=== PATIENT | female | born 1935 | race Caucasian/White ===

== ENCOUNTER 2019-03-15 12:59 | Inpatient (IN) | payer OTHER ==
--- NOTE | 2019-03-15 14:05 | PDOC ---
History of Present Illness - General Chief Complaint: Seizure Stated Complaint: SEIZURE, Time Seen by Provider: 03/15/19 13:14 History Source: Patient Exam Limitations: No Limitations - History of Present Illness Initial Comments: 03/15/19 14:04 Maria E Chahal is an 83F with PMH dementia, hypothyroidism, anemia, recent hospitalization for PNA, and known seizure disorder without medication for the last 4 weeks sent from [facility] for 2x seizures. Patient has baseline dementia and is alert but communicates in short phrases but does not meaningfully communicate other than saying that she is cold or hungry when asked how she is feeling. Called [facility] and spoke to plant health manager Ariadne, who reports that patient arrived 7 days ago from [facility] where she was admitted for PND and IV Abx needing PICC, previously living with son Teo (#[phone]). Today had 2 seizures, first at 11:15AM lasting ~60 seconds with shaking and facial twitching, resolved , then second seizures at 11:40AM. Per daughter at bedside during seizures, patient has known hx of seizures on medications, but paperwork does not indicate any seizure medications on medicine list, assumed that patient has not gotten seizure meds in a month since prior to hospitalization. Nursing denies any other symptoms prior, has been tolerating soft diet and performing rehab well. Has PICC in R arm that has not been used for anything in [place] but was not removed prior to discharge, requested to Dr. Shah to remove. Past History - Past Medical History Allergies/Adverse Reactions: Allergies Allergy/AdvReac Type Severity Reaction Status Date / Time No Known Allergies Allergy Verified 03/15/19 15:17 Home Medications: Ambulatory Orders Aa/Hydrolyzed Collagen, Whey [Lps 15-30 Liquid] 30 ml PO DAILY 03/15/19 Acetaminophen [Tylenol] 650 mg PO QID PRN 03/15/19 Ascorbate Calcium [Vitamin C] 500 mg PO DAILY 03/15/19 Diltiazem Cd [Cardizem Cd -] 180 mg PO DAILY 03/15/19 Famotidine 20 mg PO DAILY 03/15/19 Ferrous Gluconate [Fergon -] 324 mg PO DAILY 03/15/19 Honey [Medihoney] 15 ml TP DAILY 03/15/19 Lamotrigine [Lamictal] 25 mg PO 03/15/19 Levothyroxine [Synthroid -] 75 mcg PO DAILY 03/15/19 Multivitamin [One-Daily Multi-Vitamin] 1 each PO DAILY 03/15/19 Nutritional Supplement [Hi-Asif] 120 ml PO BID 03/15/19 Pantoprazole Sodium [Protonix] 40 mg PO DAILY 03/15/19 Sodium,Potassium Phosphates [Phos-Nak Packet] 1 each PO DAILY 03/15/19 Zinc Oxide 20% Topical Oint 454 gm NR BID 03/15/19 Zinc Sulfate [Zinc-220] 220 mg PO DAILY 03/15/19 - Psycho Social/Smoking Cessation Hx Smoking History: Unknown if ever smoked Review of Systems - Review of Systems Able to Perform ROS?: No (dementia) *Physical Exam - Vital Signs Last Vital Signs Temp Pulse Resp BP Pulse Ox 98.3 F 84 16 126/57 L 03/15/19 13:38 03/15/19 13:38 03/15/19 13:38 03/15/19 13:38 - Physical Exam General Appearance: Yes: Nourished, Cachetic. No: Apparent Distress HEENT: positive: EOMI, KATHE, Normal Voice, Symmetrical. negative: Scleral Icterus (R), Scleral Icterus (L) Neck: positive: Trachea midline, Normal Thyroid. negative: Tender, Lymphadenopathy (R), Lymphadenopathy (L), Tender midline Respiratory/Chest: positive: Lungs Clear, Normal Breath Sounds. negative: Chest Tender, Respiratory Distress, Accessory Muscle Use, Crackles, Rhonchi, Stridor, Wheezing Cardiovascular: positive: Regular Rhythm, Regular Rate. negative: Murmur Gastrointestinal/Abdominal: positive: Normal Bowel Sounds, Flat, Soft. negative : Tender, Organomegaly, Pulsatile Mass, Guarding, Rebound Musculoskeletal: positive: Normal Inspection. negative: CVA Tenderness, Vertebral Tenderness Extremity: positive: Normal Capillary Refill, Normal Range of Motion, Pelvis Stable, Other (no bony deformities or tenderness). negative: Tender, Coldness Integumentary: positive: Normal Color, Dry, Warm, Erythema (L forearm, consistent with chemical dermatitis), Other (ulcer to R medial foot) Neurologic: positive: Alert, Confused, Disoriented ED Treatment Course - LABORATORY CBC & Chemistry Diagram: 03/15/19 15:33 03/15/19 15:33 Medical Decision Making - Medical Decision Making 03/15/19 14:33 Patient is an 83F with known history of seizure disorders and who has likely no gotten medication in the last month presenting with 2x seizures today. Patient's VS are stable and she is in no acute distress, communicates in brief phrases and not consistent with post-ictal state but evaluation limited 2/2 dementia. No evidence of significant injury, foot ulcer appears unconcerning at this time. NH report does not show evidence of any new medications given as cause of seizures. Appears to be at baseline mental status at this time. - CMP/CBC for evaluation of lytes and infection as seizure triggers - UA/UC for UTI eval - ECG for cardiac eval - CXR for PNA eval - CT head not indicated at this time as patient has known hx seizures, low threshold to get if status changes 03/15/19 14:38 CXR shows significant rotation with hyperdense region in RL zone consistent with atelectasis vs. infiltrate. Attempted to call son Teo without success, will re-attempt. ECG poor quality, NSR with PACs, HR 87, QRS 76, QTc 476, no TWI or ischemic changes. Patient's daughter at bedside says home meds are: - Lamictal 25mg QD - Risperidone 25mg QD - Diltiazem/HCTZ 180mg QD Had seizure in ED, repetitive face/mouth twitching without significant extremity movement. Given 1mg Ativan IV and 25mg Lamictal. Labs notable for: - CBC WNL - CMP WNL 03/15/19 19:33 CT shows moderately side R basilar pleural effusion. [facility], who has not yet received past records for this patient. Called [facility] ED for records, patient had left-sided chest tube that was removed before discharge. Last CXR on 03/07/19 shows no R-sided effusion and L-sided effusion resolved. R-sided effusion is new compared to prior studies, patient requires admission for further evaluation and management. Patient re-evaluated, remains stable VS, in no respiratory distress, satting well on RA 96-97%. Labs show no evidence of PNA. Requires admission for further evaluation of R-sided pleural effusion. Discussed case with jaleesa Seymour for admission to his service. 03/15/19 22:27 Patient's daughter would like private transfer to [facility]. Discussed case with Iveth Palomo at [facility], concern for lack of physician patient coverage at [facility] should patient have repeat seizure or worsening pleural effusion, transfer denied. Admission returning to Dr. Shah. Discharge - Discharge Information Problems reviewed: Yes Clinical Impression/Diagnosis: Pleural effusion Condition: Stable - Admission Yes - Follow up/Referral - Patient Discharge Instructions - Post Discharge Activity
[2019-03-15] MEDS ORDERED: lamoTRIgine 25 MG TABLET PO ONE (15:09)
[2019-03-15] MEDS ORDERED: LORazepam 2 MG/ML SDV VIAL ONE (15:21)
[2019-03-15] MEDS ORDERED: lamoTRIgine 25 MG TABLET ONE (15:22)
[2019-03-15 15:50] LABS: EOS % 0.7 % (0-4.5); HEMATOCRIT 30.5 % (32.4-45.2); HEMOGLOBIN 10.3 GM/dL (10.7-15.3); LYMPH % 7.2 % (8-40); MCHC 33.9 g/dl (32.0-36.0); MEAN CELL VOLUME 91.4 fl (80-96); MEAN PLT VOLUME 6.8 fl (7.5-11.1); MONO % 7.6 % (3.8-10.2); NEUT % 83.5 % (42.8-82.8); PLATELET COUNT 457 K/MM3 (134-434); RBC 3.33 M/mm3 (3.60-5.2); RDW 15.4 % (11.6-15.6); WHITE BLOOD COUNT 6.9 K/mm3 (4.0-10.0)
--- NOTE | 2019-03-15 16:05 | PDOC ---
Attending Attestation - Resident Resident Name: NavinfedericoDereje - ED Attending Attestation I have performed the following: I have examined & evaluated the patient, The case was reviewed & discussed with the resident, I agree w/resident's findings & plan, Exceptions are as noted - HPI HPI: 83 yo F history dementia, hypothyroid, anemia, recent admission for complicated pneumonia (requiring vent, trach, thoracentesis) presents with seizure. She has history of seizure disorder as per daughter, but has not been on her lamictal while in NH. Also of note, has a PICC to the R arm, not currently in use, but has not yet been removed. She has recently had a loose, hacking cough as per daughter, at bedside. - Physicial Exam PE: GENERAL: Awake, alert, and fully oriented, in no acute distress HEAD: No signs of trauma EYES: PERRLA, EOMI, sclera anicteric, conjunctiva clear ENT: Auricles normal inspection, hearing grossly normal, nares patent, oropharynx clear without exudates. Moist mucosa NECK: Normal ROM, supple, no lymphadenopathy, JVD, or masses LUNGS: Good air entry B/L, scattered rhonchi HEART: Regular rate and rhythm, normal S1 and S2, no murmurs, rubs or gallops ABDOMEN: Soft, nontender, normoactive bowel sounds. No guarding, no rebound. No masses EXTREMITIES: Normal range of motion, no edema. No clubbing or cyanosis. No cords , erythema, or tenderness. RUE with PICC line intact, no surrounding erythema NEUROLOGICAL: Cranial nerves II through XII grossly intact. Normal speech. Motor and sensation intact SKIN: Warm, dry, normal turgor, no rashes or lesions noted. - Medical Decision Making Pt was given lamictal after dosage was confirmed with daughter. She had a chest XR which showed haziness on the R side, CT was ordered and showed an effusion. While patient is not requiring O2, the effusion is concerning in the setting of prior thoracentesis- is this infectious? Malignant? or possibly CHF? Unclear. Will attempt to get old records from Dr. Shah. If they do not have them, will contact [place] to confirm if this is new or old. If it is new, especially in the history of recent serious infection, may require admission.
[2019-03-15 16:25] LABS: ALBUMIN 1.8 g/dl (3.4-5.0); BILIRUBIN,TOTAL 0.2 mg/dL (0.2-1); BLOOD UREA NITROGEN 15.4 mg/dL (7-18); CALCIUM 8.2 mg/dL (8.5-10.1); CREATININE 0.5 mg/dL (0.55-1.3); TOT PROT 5.7 g/dl (6.4-8.2)
[2019-03-15 16:26] LABS: POTASSIUM 4.2 mmol/L (3.5-5.1)
--- NOTE | 2019-03-15 19:35 | PDOC ---
*Physical Exam - Vital Signs Last Vital Signs Temp Pulse Resp BP Pulse Ox 98.3 F 84 16 126/57 L 03/15/19 13:38 03/15/19 13:38 03/15/19 13:38 03/15/19 13:38 ED Treatment Course - LABORATORY CBC & Chemistry Diagram: 03/16/19 08:05 03/16/19 08:05 - ADDITIONAL ORDERS Additional order review: Laboratory Results 03/15/19 15:33 Sodium 141 Potassium 4.2 Chloride 104 Carbon Dioxide 32 Anion Gap 5 L BUN 15.4 Creatinine 0.5 L Est GFR (CKD-EPI)AfAm 103.01 Est GFR (CKD-EPI)NonAf 88.88 Random Glucose 80 Calcium 8.2 L Total Bilirubin 0.2 AST 26 ALT 18 Alkaline Phosphatase 133 H Total Protein 5.7 L Albumin 1.8 L 03/15/19 15:33 RBC 3.33 L MCV 91.4 MCHC 33.9 RDW 15.4 MPV 6.8 L Neutrophils % 83.5 H Lymphocytes % 7.2 L Monocytes % 7.6 Eosinophils % 0.7 Basophils % 1.0 - Medications Given in the ED: ED Medications Discontinued Medications Generic Name Dose Route Start Last Admin Trade Name Freq PRN Reason Stop Dose Admin Lamotrigine 25 mg 03/15/19 15:09 03/15/19 15:34 Lamictal - PO 03/15/19 15:10 25 mg ONCE ONE Administration Lorazepam 1 mg 03/15/19 15:21 03/15/19 15:34 Ativan Injection - IVPUSH 03/15/19 15:22 1 mg ONCE ONE Administration Medical Decision Making - Medical Decision Making 03/15/19 19:34 I received pt on signout and she will be admitted for pleural effusion in the right lung which is new. She is awaiting signout to the hospitalists, and a bed. Pt has been loaded with her seizure meds. (LAMICTAL; which she has not had at the [place] or during her recent hospitalization at [facility]) She will be loaded with 1g keppra as well as a bridge. Discharge - Discharge Information Problems reviewed: Yes Clinical Impression/Diagnosis: Pleural effusion Condition: Stable - Follow up/Referral - Patient Discharge Instructions - Post Discharge Activity
[2019-03-15] MEDS ORDERED: levETIRAcetam 500 MG/5 ML INJECTION VIAL IVPB ONE (19:36)
[2019-03-15 23:42] LABS: N-TERMINAL BNP 1442.6 pg/ml (5-450)
[2019-03-16 01:08] LABS: EPI CELLS 0.2 /HPF (0-5/HPF); HYALINE CASTS 0 /lpf (0-8); PH,URINE 7.5 (5.0-8.0); URINE APPEARANCE CLOUDY; URINE BACTERIA 27.3 /hpf (NEGATIVE); URINE BILIRUBIN NEGATIVE (NEGATIVE); URINE COLOR YELLOW; URINE GLUCOSE (UA) NEGATIVE (NEGATIVE); URINE KETONE NEGATIVE (NEGATIVE); URINE LEUK ESTERASE 3+ (NEGATIVE); URINE NITRITE POSITIVE (NEGATIVE); URINE PROTEIN 1+ (NEGATIVE); URINE RBC 47 /hpf (0-4); URINE UROBILINOGEN 0.2 mg/dL (0.2-1.0); URINE WBC 239 /hpf (0-5)
[2019-03-16] MEDS ORDERED: CEFTRIAXONE 1 GM/50 ML BAG ONE (01:15)
[2019-03-16] MEDS ORDERED: CEFTRIAXONE 1 GM in DEXTROSE 5%-WATER - 100 ML IVPB ONE (01:15)
[2019-03-16] MEDS: LEVOTHYROXINE NA 75 MCG TABLET (FP) PO SCH (06:51)
[2019-03-16 10:06] LABS: BLOOD UREA NITROGEN 15.9 mg/dL (7-18); CALCIUM 7.7 mg/dL (8.5-10.1); CREATININE 0.4 mg/dL (0.55-1.3); POTASSIUM 3.5 mmol/L (3.5-5.1)
[2019-03-16 10:07] LABS: HEMOGLOBIN 9.6 GM/dL (10.7-15.3); MCHC 34.2 g/dl (32.0-36.0); MEAN CELL VOLUME 90.7 fl (80-96); MEAN PLT VOLUME 7.6 fl (7.5-11.1); PLATELET COUNT 411 K/MM3 (134-434); RBC 3.08 M/mm3 (3.60-5.2); RDW 15.6 % (11.6-15.6); WHITE BLOOD COUNT 5.6 K/mm3 (4.0-10.0)
[2019-03-16] MEDS: NAPH,MB-DB/K PH,MBDB POWDER PACKET PO SCH (11:04)
[2019-03-16] MEDS: PANTOPRAZOLE 40 MG TABLET PO SCH (11:04)
[2019-03-16] MEDS: FERROUS GLUCONATE 324 MG TAB (FP) PO SCH (11:04)
--- NOTE | 2019-03-16 11:31 | CONSULT ---
Consult - text type - Consultation Consultation Note: Neurology Chief Complaint: Seizure - History of Present Illness Maria E Chahal is an 83F with PMH dementia, hypothyroidism, anemia, recent hospitalization for PNA, and known seizure disorder without medication for the last 4 weeks sent from [facility] for 2x seizures. Patient has baseline dementia and is alert but communicates in short phrases but does not meaningfully communicate other than saying that she is cold or hungry when asked how she is feeling.Called [facility] and spoke to manager meat Ariadne, who reported that patient arrived 7 days prior of day of admission from [facility] where she was admitted for PND and IV Abx needing PICC, previously living with son Teo (#[phone]). On day of admission had 2 seizures, first at 11:15AM lasting ~60 seconds with shaking and facial twitching, resolved, then second seizures at 11:40AM. Per daughter at bedside during seizures, patient has known hx of seizures on medications, but paperwork does not indicate any seizure medications on medicine list, assumed that patient has not gotten seizure meds in a month since prior to hospitalization. Nursing denied any other symptoms prior, has been tolerating soft diet and performing rehab well. Daughter did not know when prior seizure was. Reportedly on Lamictal 25mg which is a low dose of the medication. Can restart this dose and if recurrence then would increase to 50mg. For now 25mg can be started. Past History Dementia, hypothyroidism, anemia, recent hospitalization for PNA, seizure disorder - Family History HTN -Psycho Social/Smoking Cessation Hx Smoking History: Unknown if ever smoked Review of Systems - Review of Systems Able to Perform ROS?: No (dementia) Allergies/Adverse Reactions: Allergies Allergy/AdvReac Type Severity Reaction Status Date / Time No Known Allergies Allergy Verified 03/15/19 15:17 Home Medications: Ambulatory Orders Aa/Hydrolyzed Collagen, Whey [Lps 15-30 Liquid] 30 ml PO DAILY 03/15/19 Acetaminophen [Tylenol] 650 mg PO QID PRN 03/15/19 Ascorbate Calcium [Vitamin C] 500 mg PO DAILY 03/15/19 Diltiazem Cd [Cardizem Cd -] 180 mg PO DAILY 03/15/19 Famotidine 20 mg PO DAILY 03/15/19 Ferrous Gluconate [Fergon -] 324 mg PO DAILY 03/15/19 Honey [Medihoney] 15 ml TP DAILY 03/15/19 Lamotrigine [Lamictal] 25 mg PO 03/15/19 Levothyroxine [Synthroid -] 75 mcg PO DAILY 03/15/19 Multivitamin [One-Daily Multi-Vitamin] 1 each PO DAILY 03/15/19 Nutritional Supplement [Hi-Asif] 120 ml PO BID 03/15/19 Pantoprazole Sodium [Protonix] 40 mg PO DAILY 03/15/19 Sodium,Potassium Phosphates [Phos-Nak Packet] 1 each PO DAILY 03/15/19 Zinc Oxide 20% Topical Oint 454 gm NR BID 03/15/19 Zinc Sulfate [Zinc-220] 220 mg PO DAILY 03/15/19 Active Medications Acetaminophen (Tylenol -) 650 mg PO QID PRN PRN Reason: PAIN Diltiazem HCl (Cardizem Cd -) 180 mg PO DAILY [facility] Famotidine (Pepcid -) 20 mg PO DAILY [facility] Ferrous Gluconate (Fergon -) 324 mg PO DAILY [facility] Last Admin: 03/16/19 11:04 Dose: 324 mg Lamotrigine (Lamictal -) 25 mg PO DAILY [facility] Levothyroxine Sodium (Synthroid -) 75 mcg PO ACBK [facility] Last Admin: 03/16/19 06:51 Dose: 75 mcg Pantoprazole Sodium (Protonix -) 40 mg PO DAILY [facility] Last Admin: 03/16/19 11:04 Dose: 40 mg Pneumococcal 13-Valent Conj Vacc (Prevnar 13 Syringe -) 0.5 ml IM .ONCE ONE Stop: 03/16/19 12:01 Potassium Phos/Sodium Phos (Phos-Nak Packet -) 1 packet PO DAILY [facility] Last Admin: 03/16/19 11:04 Dose: 1 packet *Physical Exam - Vital Signs Vital Signs Period Temp Pulse Resp BP Sys/Moss Pulse Ox Last 24 Hr 96.7 F-98.8 F 69-100 16-20 126-153/57-82 94-98 General Appearance: Yes: Nourished, Cachetic. No: Apparent Distress HEENT: positive: EOMI, KATHE, Normal Voice, Symmetrical. negative: Scleral Icterus (R), Scleral Icterus (L) Neck: positive: Trachea midline, Normal Thyroid. negative: Tender, Lymphadenopathy (R), Lymphadenopathy (L), Tender midline Respiratory/Chest: positive: Lungs Clear, Normal Breath Sounds. negative: Chest Tender, Respiratory Distress, Accessory Muscle Use, Crackles, Rhonchi, Stridor, Wheezing Cardiovascular: positive: Regular Rhythm, Regular Rate. negative: Murmur Gastrointestinal/Abdominal: positive: Normal Bowel Sounds, Flat, Soft. negative : Tender, Organomegaly, Pulsatile Mass, Guarding, Rebound Musculoskeletal: positive: Normal Inspection. negative: CVA Tenderness, Vertebral Tenderness Extremity: positive: Normal Capillary Refill, Normal Range of Motion, Pelvis Stable, Other (no bony deformities or tenderness). negative: Tender, Coldness Integumentary: positive: Normal Color, Dry, Warm, Erythema (L forearm, consistent with chemical dermatitis), Other (ulcer to R medial foot) Neurologic: positive: Alert, Confused, Disoriented CBCD WBC 5.6 K/mm3 (4.0-10.0) 03/16/19 08:05 RBC 3.08 M/mm3 (3.60-5.2) L 03/16/19 08:05 Hgb 9.6 GM/dL (10.7-15.3) L 03/16/19 08:05 Hct 28.0 % (32.4-45.2) L 03/16/19 08:05 MCV 90.7 fl (80-96) 03/16/19 08:05 MCHC 34.2 g/dl (32.0-36.0) 03/16/19 08:05 RDW 15.6 % (11.6-15.6) 03/16/19 08:05 Plt Count 411 K/MM3 (134-434) 03/16/19 08:05 MPV 7.6 fl (7.5-11.1) D 03/16/19 08:05 CMP Sodium 141 mmol/L (136-145) 03/16/19 08:05 Potassium 3.5 mmol/L (3.5-5.1) 03/16/19 08:05 Chloride 106 mmol/L (98-107) 03/16/19 08:05 Carbon Dioxide 31 mmol/L (21-32) 03/16/19 08:05 Anion Gap 4 MMOL/L (8-16) L 03/16/19 08:05 BUN 15.9 mg/dL (7-18) 03/16/19 08:05 Creatinine 0.4 mg/dL (0.55-1.3) L 03/16/19 08:05 Random Glucose 72 mg/dL (74-106) L 03/16/19 08:05 Calcium 7.7 mg/dL (8.5-10.1) L 03/16/19 08:05 Total Bilirubin 0.2 mg/dL (0.2-1) 03/15/19 15:33 AST 26 U/L (15-37) 03/15/19 15:33 ALT 18 U/L (13-61) 03/15/19 15:33 Alkaline Phosphatase 133 U/L (45-117) H 03/15/19 15:33 Total Protein 5.7 g/dl (6.4-8.2) L 03/15/19 15:33 Albumin 1.8 g/dl (3.4-5.0) L 03/15/19 15:33 PLAN: Maria E Chahal is an 83F with PMH dementia, hypothyroidism, anemia, recent hospitalization for PNA, and known seizure disorder without medication for the last 4 weeks sent from [facility] for 2x seizures. Patient has baseline dementia and is alert but communicates in short phrases but does not meaningfully communicate other than saying that she is cold or hungry when asked how she is feeling.Called [facility] and spoke to manager meat Ariadne, who reported that patient arrived 7 days prior of day of admission from [facility] where she was admitted for PND and IV Abx needing PICC, previously living with son Teo (#[phone]). On day of admission had 2 seizures, first at 11:15AM lasting ~60 seconds with shaking and facial twitching, resolved, then second seizures at 11:40AM. Per daughter at bedside during seizures, patient has known hx of seizures on medications, but paperwork does not indicate any seizure medications on medicine list, assumed that patient has not gotten seizure meds in a month since prior to hospitalization. Nursing denied any other symptoms prior, has been tolerating soft diet and performing rehab well. Daughter did not know when prior seizure was. Reportedly on Lamictal 25mg which is a low dose of the medication. Can restart this dose and if recurrence then would increase to 50mg. For now 25mg can be started. EEG not available on weekend, can be considered for outpatient if patient able. Seizure free at this time. Would medically optimize, treat any underlying infection that can precipitate seizure, maintain adequate hydration, avoid sleep deprivation.
[2019-03-16] MEDS ORDERED: PNEUMOC 13-VAL CONJ-DIP CRM/PF 0.5 ML DISP.SYRIN IM ONE (12:00)
[2019-03-16] MEDS: lamoTRIgine 25 MG TABLET PO SCH (12:18)
--- NOTE | 2019-03-16 12:28 | HP ---
Admitting History and Physical - Primary Care Physician PCP: Pearl Shah S - Admission Chief Complaint: seizures History of Present Illness: Maria E Chahal is an 83F with PMH dementia, hypothyroidism, anemia, recent hospitalization for PNA, and known seizure disorder without medication for the last 4 weeks sent from [facility] for 2x seizures. Patient has baseline dementia and is alert but communicates in short phrases but does not meaningfully communicate. Per [facility], patient arrived recently in [facility] from [facility] where she was admitted for PNA, pancreatitis, per daughter ( at bedside) pt also had L pleural effusion and chest tube (removed) but the etiology of her pleural effuiosn are unclear. On day of admission in [place] pt had 2 seizures. Per daughter at bedside during seizures, patient has known hx of seizures on medication (held in [facility] b/o pancreatitis per daughter). Currently pt in bed NAD sleeping but arousable, advanced dementia can not give history. History Source: Family Member, Medical Record Limitations to Obtaining History: Dementia - Past Medical History GEROPSYCHOLOGIST: Yes: Dementia ...: No - Smoking History Smoking history: Unknown if ever smoked Have you smoked in the past 12 months: No - Alcohol/Substance Use Hx Alcohol Use: No History of Substance Use: reports: None - Social History Usual Living Arrangement: Yes: [facility] History of Recent Travel: No Home Medications - Allergies Allergies/Adverse Reactions: Allergies Allergy/AdvReac Type Severity Reaction Status Date / Time No Known Allergies Allergy Verified 03/15/19 15:17 - Home Medications Home Medications: Ambulatory Orders Aa/Hydrolyzed Collagen, Whey [Lps 15-30 Liquid] 30 ml PO DAILY 03/15/19 Acetaminophen [Tylenol] 650 mg PO QID PRN 03/15/19 Ascorbate Calcium [Vitamin C] 500 mg PO DAILY 03/15/19 Diltiazem Cd [Cardizem Cd -] 180 mg PO DAILY 03/15/19 Famotidine 20 mg PO DAILY 03/15/19 Ferrous Gluconate [Fergon -] 324 mg PO DAILY 03/15/19 Honey [Medihoney] 15 ml TP DAILY 03/15/19 Lamotrigine [Lamictal] 25 mg PO DAILY 03/15/19 Levothyroxine [Synthroid -] 75 mcg PO DAILY 03/15/19 Multivitamin [One-Daily Multi-Vitamin] 1 each PO DAILY 03/15/19 Nutritional Supplement [Hi-Asif] 120 ml PO BID 03/15/19 Pantoprazole Sodium [Protonix] 40 mg PO DAILY 03/15/19 Sodium,Potassium Phosphates [Phos-Nak Packet] 1 each PO DAILY 03/15/19 Zinc Oxide 20% Topical Oint 454 gm NR BID 03/15/19 Zinc Sulfate [Zinc-220] 220 mg PO DAILY 03/15/19 Family Medical History Family History: Unremarkable Review of Systems - Review of Systems Constitutional: denies: Fever, Lethargy HENT: denies: Epistaxis Cardiovascular: denies: Shortness of Breath Respiratory: denies: Cough, Hemoptysis Genitourinary: denies: Hematuria Musculoskeletal: denies: Joint Swelling Integumentary: denies: Eczema, Rash Neurological: reports: Seizure Hematology/Lymphatic: denies: Excessive Bleeding Psychiatric: denies: Altered Sleep Pattern Physical Examination Vital Signs: Vital Signs Temperature 97.7 F 03/16/19 10:00 Pulse Rate 69 03/16/19 10:00 Respiratory Rate 03/16/19 10:00 Blood Pressure 146/72 03/16/19 10:00 O2 Sat by Pulse Oximetry (%) 94 L 03/16/19 05:14 Constitutional: Yes: No Distress HENT: Yes: Atraumatic Neck: Yes: Supple Cardiovascular: Yes: Regular Rate and Rhythm Respiratory: Yes: Diminished Gastrointestinal: Yes: Soft. No: Tenderness Renal/: No: Hematuria Musculoskeletal: No: Joint Stiffness, Joint Swelling Extremities: No: Cold, Cool Edema: No Integumentary: No: Venous Stasis Changes Neurological: Yes: Alert Psychiatric: Yes: Alert. No: Agitated Labs: CBC, BMP 03/16/19 08:05 03/16/19 08:05 Imaging - Results Chest X-ray: Report Reviewed Cat Scan: Report Reviewed Other: Report Reviewed Assessment/Plan Maria E Chahal is an 83F with PMH dementia, hypothyroidism, anemia, recent hospitalization for PNA and pancreatitis, and known seizure disorder sent from [facility] for 2x seizures. admit; neurology eval pleural effusions: get old records from [facility]; cardiology and pulmonary eval anemia w/u advanced directives? d/w pt's daughter the above; close f/u aspiration PFX, thickened fluids, purree diet; d/w staff
[2019-03-16] MEDS ORDERED: ACETAMINOPHEN 325 MG TABLET (FP) PO PRN (12:34)
--- NOTE | 2019-03-16 13:09 | CON.CARD ---
Cardiology Consult (text) - Consultation Consultation Note: cc: seizure hpi: hx from charts, family, pt with dementia 83 f hx dementia, htn, hypothyroid, sent [place]. Recent admit at [facility] for [facility]. Sent to [place] and had seizure so sent to ER. Pt cannot provide hx. Found to have bl pleural effs. pmh: per hpi psh: unknown social: no tob fam: unkown ros: unable to obtain 2/2 dementia meds: Home Medications Medication Instructions Recorded Aa/Hydrolyzed Collagen, Whey [Lps 30 ml PO DAILY 03/15/19 15-30 Liquid] Acetaminophen [Tylenol] 650 mg PO QID PRN 03/15/19 Ascorbate Calcium [Vitamin C] 500 mg PO DAILY 03/15/19 Diltiazem Cd [Cardizem Cd -] 180 mg PO DAILY 03/15/19 Famotidine 20 mg PO DAILY 03/15/19 Ferrous Gluconate [Fergon -] 324 mg PO DAILY 03/15/19 Honey [Medihoney] 15 ml TP DAILY 03/15/19 Lamotrigine [Lamictal] 25 mg PO 03/15/19 Levothyroxine [Synthroid -] 75 mcg PO DAILY 03/15/19 Multivitamin [One-Daily 1 each PO DAILY 03/15/19 Multi-Vitamin] Nutritional Supplement [Hi-Asif] 120 ml PO BID 03/15/19 Pantoprazole Sodium [Protonix] 40 mg PO DAILY 03/15/19 Sodium,Potassium Phosphates 1 each PO DAILY 03/15/19 [Phos-Nak Packet] Zinc Oxide 20% Topical Oint 454 gm NR BID 03/15/19 Zinc Sulfate [Zinc-220] 220 mg PO DAILY 03/15/19 pe: Vital Signs Period Temp Pulse Resp BP Sys/Moss Pulse Ox Last 24 Hr 96.7 F-98.8 F 69-100 16-20 126-153/57-82 94-98 nad no jvd rrr s1s2 no mrg dec bs bases bl, poor eff awake, confused no jaundice diaphoresis pos dp pt no carotid bruits abd nt nd pos bs no le e/c/c Laboratory Last Values WBC 5.6 K/mm3 (4.0-10.0) 03/16/19 08:05 RBC 3.08 M/mm3 (3.60-5.2) L 03/16/19 08:05 Hgb 9.6 GM/dL (10.7-15.3) L 03/16/19 08:05 Hct 28.0 % (32.4-45.2) L 03/16/19 08:05 MCV 90.7 fl (80-96) 03/16/19 08:05 MCH 31.0 pg (25.7-33.7) 03/16/19 08:05 MCHC 34.2 g/dl (32.0-36.0) 03/16/19 08:05 RDW 15.6 % (11.6-15.6) 03/16/19 08:05 Plt Count 411 K/MM3 (134-434) 03/16/19 08:05 MPV 7.6 fl (7.5-11.1) D 03/16/19 08:05 Absolute Neuts (auto) 5.8 K/mm3 (1.5-8.0) 03/15/19 15:33 Neutrophils % 83.5 % (42.8-82.8) H 03/15/19 15:33 Lymphocytes % 7.2 % (8-40) L 03/15/19 15:33 Monocytes % 7.6 % (3.8-10.2) 03/15/19 15:33 Eosinophils % 0.7 % (0-4.5) 03/15/19 15:33 Basophils % 1.0 % (0-2.0) 03/15/19 15:33 Nucleated RBC % 0 % (0-0) 03/15/19 15:33 Sodium 141 mmol/L (136-145) 03/16/19 08:05 Potassium 3.5 mmol/L (3.5-5.1) 03/16/19 08:05 Chloride 106 mmol/L (98-107) 03/16/19 08:05 Carbon Dioxide 31 mmol/L (21-32) 03/16/19 08:05 Anion Gap 4 MMOL/L (8-16) L 03/16/19 08:05 BUN 15.9 mg/dL (7-18) 03/16/19 08:05 Creatinine 0.4 mg/dL (0.55-1.3) L 03/16/19 08:05 Est GFR (CKD-EPI)AfAm 110.85 03/16/19 08:05 Est GFR (CKD-EPI)NonAf 95.65 03/16/19 08:05 Random Glucose 72 mg/dL (74-106) L 03/16/19 08:05 Calcium 7.7 mg/dL (8.5-10.1) L 03/16/19 08:05 Total Bilirubin 0.2 mg/dL (0.2-1) 03/15/19 15:33 AST 26 U/L (15-37) 03/15/19 15:33 ALT 18 U/L (13-61) 03/15/19 15:33 Alkaline Phosphatase 133 U/L (45-117) H 03/15/19 15:33 B-Natriuretic Peptide 1442.6 pg/ml (5-450) H 03/15/19 15:33 Total Protein 5.7 g/dl (6.4-8.2) L 03/15/19 15:33 Albumin 1.8 g/dl (3.4-5.0) L 03/15/19 15:33 TSH 1.54 uIU/ml (0.358-3.74) 03/16/19 08:05 Free T4 1.14 ng/dl (0.76-1.46) 03/16/19 08:05 Urine Color Yellow 03/16/19 00:20 Urine Appearance Cloudy 03/16/19 00:20 Urine pH 7.5 (5.0-8.0) 03/16/19 00:20 Ur Specific [place] 1.013 (1.010-1.035) 03/16/19 00:20 Urine Protein 1+ (NEGATIVE) H 03/16/19 00:20 Urine Glucose (UA) Negative (NEGATIVE) 03/16/19 00:20 Urine Ketones Negative (NEGATIVE) 03/16/19 00:20 Urine Blood 2+ (NEGATIVE) H 03/16/19 00:20 Urine Nitrite Positive (NEGATIVE) H 03/16/19 00:20 Urine Bilirubin Negative (NEGATIVE) 03/16/19 00:20 Urine Urobilinogen 0.2 mg/dL (0.2-1.0) 03/16/19 00:20 Ur Leukocyte Esterase 3+ (NEGATIVE) H 03/16/19 00:20 Urine WBC (Auto) 239 /hpf (0-5) 03/16/19 00:20 Urine RBC (Auto) 47 /hpf (0-4) 03/16/19 00:20 Urine Casts (Auto) 0 /lpf (0-8) 03/16/19 00:20 U Epithel Cells (Auto) 0.2 /HPF (0-5/HPF) 03/16/19 00:20 Urine Bacteria (Auto) 27.3 /hpf (NEGATIVE) 03/16/19 00:20 ecg: sr, nl intervals, no ischemic changes chest ct: mod bl effs a/p: 83 f hx dementia, htn, hypothyroid, [place]. pleural effs, chf: -pt with mod bl pleural effs -recent admit for pna, possibly related to infection vs chf/vol overload -will start lasix 20 iv qd and monitor daily chem7. check echo htn: -cont dilt hypothyroid: -on synthroid, tsh wnl
--- NOTE | 2019-03-16 13:13 | EKG ---
Test Reason : Blood Pressure : / mmHG Vent. Rate : 087 BPM Atrial Rate : 087 BPM P-R Int : 160 ms QRS Dur : 076 ms QT Int : 396 ms P-R-T Axes : 082 -30 034 degrees QTc Int : 476 ms POOR DATA QUALITY, INTERPRETATION MAY BE ADVERSELY AFFECTED SINUS RHYTHM WITH PREMATURE ATRIAL COMPLEXES LEFT AXIS DEVIATION ANTEROSEPTAL INFARCT , AGE UNDETERMINED ABNORMAL ECG NO PREVIOUS ECGS AVAILABLE Confirmed by SMOOTH WRIGHT, ARLET ([id number]) on 03/16/2019 1:13:31 PM Referred By: Confirmed By:ARLET REBOLLAR MD
--- NOTE | 2019-03-16 14:52 | CON.PULM ---
Consult Consult Specialty:: PULMONARY Referred by:: Dr Shah Reason for Consultation:: pleural effusions - History of Present Illness Chief Complaint: seizures History of Present Illness: 83yo female with h/o seizure disorder, hypothyroidism, anemia, dementia, recent hospitalization at [facility] for pneumonia, pancreatitis admitted from residential for seizure activity. History obtained from daughter at bedside as pt unable to provide history. Per daughter, pt also had bilateral pleural effusions during her admission requiring chest tube placement. 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 No fevers, chills or sweats. Has a nonproductive cough. No history of asthma or COPD, pt is a remote smoker. - History Source History Provided By: Family Member, Medical Record Limitations to Obtaining History: Dementia - Past Medical History ...: No - Smoking History Smoking history: Unknown if ever smoked Have you smoked in the past 12 months: No Home Medications - Allergies Allergies/Adverse Reactions: Allergies Allergy/AdvReac Type Severity Reaction Status Date / Time No Known Allergies Allergy Verified 03/15/19 15:17 - Home Medications Home Medications: Ambulatory Orders Aa/Hydrolyzed Collagen, Whey [Lps 15-30 Liquid] 30 ml PO DAILY 03/15/19 Acetaminophen [Tylenol] 650 mg PO QID PRN 03/15/19 Ascorbate Calcium [Vitamin C] 500 mg PO DAILY 03/15/19 Diltiazem Cd [Cardizem Cd -] 180 mg PO DAILY 03/15/19 Famotidine 20 mg PO DAILY 03/15/19 Ferrous Gluconate [Fergon -] 324 mg PO DAILY 03/15/19 Honey [Medihoney] 15 ml TP DAILY 03/15/19 Lamotrigine [Lamictal] 25 mg PO DAILY 03/15/19 Levothyroxine [Synthroid -] 75 mcg PO DAILY 03/15/19 Multivitamin [One-Daily Multi-Vitamin] 1 each PO DAILY 03/15/19 Nutritional Supplement [Hi-Asif] 120 ml PO BID 03/15/19 Pantoprazole Sodium [Protonix] 40 mg PO DAILY 03/15/19 Sodium,Potassium Phosphates [Phos-Nak Packet] 1 each PO DAILY 03/15/19 Zinc Oxide 20% Topical Oint 454 gm NR BID 03/15/19 Zinc Sulfate [Zinc-220] 220 mg PO DAILY 03/15/19 Review of Systems Unable to obtain ROS, reason: pt nonverbal Physical Exam Vital Sings: Vital Signs Temperature 97.7 F 03/16/19 10:00 Pulse Rate 69 03/16/19 10:00 Respiratory Rate 03/16/19 10:00 Blood Pressure 146/72 03/16/19 10:00 O2 Sat by Pulse Oximetry (%) 96 03/16/19 09:00 Constitutional: Yes: Calm, Cachectic Eyes: Yes: Conjunctiva Clear, EOM Intact HENT: Yes: Atraumatic, Normocephalic Neck: Yes: Supple, Trachea Midline Cardiovascular: Yes: Regular Rate and Rhythm Respiratory: Yes: Diminished (decreased breath sounds at the bases) ...Clubbing: No Gastrointestinal: Yes: Normal Bowel Sounds, Soft. No: Tenderness Edema: No Neurological: Yes: Alert Labs: CBC, BMP 03/16/19 08:05 03/16/19 08:05 Imaging - Results Chest X-ray: Report Reviewed, Image Reviewed Cat Scan: Report Reviewed, Image Reviewed (bilateral effusions R>L with atelectasis) Problem List - Problems (1) Pleural effusion Code(s): J90 - PLEURAL EFFUSION, NOT ELSEWHERE CLASSIFIED Assessment/Plan Bilateral Pleural Effusions Suspect Acute on Chronic Diastolic Heart Failure Recent Pneumonia HTN Hypothyroidism Dementia - agree with lasix - monitor urine output, creatinine - echocardiogram - received antibiotics in the ER, can monitor off antibiotics for now - f/u cultures - O2 to keep SpO2 >90% - aspiration precautions - DVT prophylaxis Thank you for this consult Nickolas Calle MD
[2019-03-16] MEDS: FUROSEMIDE 40 MG/4 ML INJECTABLE VIAL IVPUSH SCH (15:07)
[2019-03-16] MEDS: FAMOTIDINE 20 MG TABLET PO SCH (16:40)
[2019-03-16] MEDS: HEPARIN NA (PORCINE) 5,000 UNITS/ML 1ML VIAL SQ SCH (22:01)
[2019-03-17] MEDS: LEVOTHYROXINE NA 75 MCG TABLET (FP) PO SCH (06:44)
[2019-03-17] MEDS ORDERED: PT OWN MED DRAWER 7, Y5N ONE ×2 (07:46→08:50)
[2019-03-17 09:00] LABS: BASO % 0.7 % (0-2.0); EOS % 0.3 % (0-4.5); HEMOGLOBIN 9.4 GM/dL (10.7-15.3); LYMPH % 13.4 % (8-40); MCH 30.5 pg (25.7-33.7); MCHC 33.8 g/dl (32.0-36.0); MEAN CELL VOLUME 90.4 fl (80-96); MEAN PLT VOLUME 6.9 fl (7.5-11.1); MONO % 7.9 % (3.8-10.2); NEUT % 77.7 % (42.8-82.8); PLATELET COUNT 455 K/MM3 (134-434); RBC 3.09 M/mm3 (3.60-5.2); RDW 15.5 % (11.6-15.6); WHITE BLOOD COUNT 5.8 K/mm3 (4.0-10.0)
[2019-03-17 09:02] LABS: RETICULOCYTES 1.01 % (0.5-1.5)
[2019-03-17] MEDS: FERROUS GLUCONATE 324 MG TAB (FP) PO SCH (09:34)
[2019-03-17] MEDS: HEPARIN NA (PORCINE) 5,000 UNITS/ML 1ML VIAL SQ SCH ×2 (09:34→22:17)
[2019-03-17] MEDS: lamoTRIgine 25 MG TABLET PO SCH (09:35)
[2019-03-17] MEDS: FUROSEMIDE 40 MG/4 ML INJECTABLE VIAL IVPUSH SCH (09:35)
[2019-03-17] MEDS: MULTIVITAMINS (DAILY MVI) TABLET (FP) PO SCH (09:35)
[2019-03-17] MEDS: NAPH,MB-DB/K PH,MBDB POWDER PACKET PO SCH (09:36)
[2019-03-17] MEDS: FAMOTIDINE 20 MG TABLET PO SCH (09:38)
[2019-03-17 09:53] LABS: ALBUMIN 1.6 g/dl (3.4-5.0); BILIRUBIN,TOTAL 0.1 mg/dL (0.2-1); CALCIUM 8.1 mg/dL (8.5-10.1); CREATININE 0.4 mg/dL (0.55-1.3); POTASSIUM 3.5 mmol/L (3.5-5.1); TOT PROT 5.2 g/dl (6.4-8.2)
--- NOTE | 2019-03-17 10:34 | PN ---
Progress Note (short form) - Note Progress Note: s: no cp sob palps dizzy Current Medications Generic Name Dose Route Start Last Admin Trade Name Freq PRN Reason Stop Dose Admin Acetaminophen 650 mg 03/16/19 12:34 Tylenol - PO Q6H PRN PAIN Diltiazem HCl 180 mg 03/16/19 10:00 03/17/19 09:34 Cardizem Cd - PO 180 mg DAILY SWAPNA Administration Famotidine 20 mg 03/16/19 16:00 03/17/19 09:38 Pepcid - PO 20 mg DAILY SWAPNA Administration Ferrous Gluconate 324 mg 03/16/19 10:00 03/17/19 09:34 Fergon - PO 324 mg DAILY SWAPNA Administration Furosemide 20 mg 03/16/19 13:15 03/17/19 09:35 Lasix Injection - IVPUSH 20 mg DAILY SWAPNA Administration Heparin Sodium (Porcine) 5,000 unit 03/16/19 22:00 03/17/19 09:34 Heparin - SQ 5,000 unit BID SWAPNA Administration Lamotrigine 25 mg 03/16/19 10:00 03/17/19 09:35 Lamictal - PO 25 mg DAILY SWAPNA Administration Levothyroxine Sodium 75 mcg 03/16/19 07:00 03/17/19 06:44 Synthroid - PO 75 mcg ACBK SWAPNA Administration Multivitamins/Minerals/Vitamin C 1 tab 03/17/19 10:00 03/17/19 09:35 Tab-A-Vit - PO 1 tab DAILY SWAPNA Administration Pantoprazole Sodium 40 mg 03/16/19 10:00 03/16/19 11:04 Protonix - PO 40 mg DAILY SWAPNA Administration Potassium Phos/Sodium Phos 1 packet 03/16/19 10:00 03/17/19 09:36 Phos-Nak Packet - PO 1 packet DAILY SWAPNA Administration Vital Signs Period Temp Pulse Resp BP Sys/Moss Pulse Ox Last 24 Hr 97.3 F-98.0 F 78-83 18-20 105-133/63-71 94 nad no jvd rrr s1s2 no mrg dec bs bases bl, poor eff awake, confused no jaundice diaphoresis pos dp pt no carotid bruits abd nt nd pos bs no le e/c/c CBC, BMP 03/17/19 07:45 03/17/19 07:45 ecg: sr, nl intervals, no ischemic changes chest ct: mod bl effs a/p: 83 f hx dementia, htn, hypothyroid, sent [place] for [place]. pleural effs, chf: -pt with mod bl pleural effs -recent admit for pna, possibly related to infection vs chf/vol overload -cont lasix 20 iv qd and monitor daily chem7. check echo htn: -cont dilt hypothyroid: -on synthroid, tsh wnl
--- NOTE | 2019-03-17 11:01 | PN ---
Progress Note (short form) - Note Progress Note: Neurology Chief Complaint: Seizure - History of Present Illness Maria E Chahal is an 83F with PMH dementia, hypothyroidism, anemia, recent hospitalization for PNA, and known seizure disorder without medication for the last 4 weeks sent from [facility] for 2x seizures. Patient has baseline dementia and is alert but communicates in short phrases but does not meaningfully communicate other than saying that she is cold or hungry when asked how she is feeling.Called [facility] and spoke to funeral location manager Ariadne, who reported that patient arrived 7 days prior of day of admission from [facility] where she was admitted for PND and IV Abx needing PICC, previously living with son Teo (#[phone]). On day of admission had 2 seizures, first at 11:15AM lasting ~60 seconds with shaking and facial twitching, resolved, then second seizures at 11:40AM. Per daughter at bedside during seizures, patient has known hx of seizures on medications, but paperwork does not indicate any seizure medications on medicine list, assumed that patient has not gotten seizure meds in a month since prior to hospitalization. Nursing denied any other symptoms prior, has been tolerating soft diet and performing rehab well. Daughter did not know when prior seizure was. Reportedly on Lamictal 25mg which is a low dose of the medication. Lamictal restarted at 25 mg and discussed with nurse who confirmed no abnormal motor activity in the past 24 hours. Can remain on this dose for now unless recurrent events occur at which point would consider increasing to 50 mg. Active Medications Acetaminophen (Tylenol -) 650 mg PO Q6H PRN PRN Reason: PAIN Diltiazem HCl (Cardizem Cd -) 180 mg PO DAILY [facility] Last Admin: 03/17/19 09:34 Dose: 180 mg Famotidine (Pepcid -) 20 mg PO DAILY [facility] Last Admin: 03/17/19 09:38 Dose: 20 mg Ferrous Gluconate (Fergon -) 324 mg PO DAILY [facility] Last Admin: 03/17/19 09:34 Dose: 324 mg Furosemide (Lasix Injection -) 20 mg IVPUSH DAILY [facility] Last Admin: 03/17/19 09:35 Dose: 20 mg Heparin Sodium (Porcine) (Heparin -) 5,000 unit SQ BID [facility] Last Admin: 03/17/19 09:34 Dose: 5,000 unit Lamotrigine (Lamictal -) 25 mg PO DAILY [facility] Last Admin: 03/17/19 09:35 Dose: 25 mg Levothyroxine Sodium (Synthroid -) 75 mcg PO ACBK [facility] Last Admin: 03/17/19 06:44 Dose: 75 mcg Multivitamins/Minerals/Vitamin C (Tab-A-Vit -) 1 tab PO DAILY [facility] Last Admin: 03/17/19 09:35 Dose: 1 tab Pantoprazole Sodium (Protonix -) 40 mg PO DAILY [facility] Last Admin: 03/16/19 11:04 Dose: 40 mg Potassium Phos/Sodium Phos (Phos-Nak Packet -) 1 packet PO DAILY [facility] Last Admin: 03/17/19 09:36 Dose: 1 packet *Physical Exam - Vital Signs Vital Signs Period Temp Pulse Resp BP Sys/Moss Pulse Ox Last 24 Hr 97.3 F-98.0 F 78-83 18-20 105-133/63-71 94 General Appearance: Yes: Nourished, Cachetic. No: Apparent Distress HEENT: positive: EOMI, KATHE, Normal Voice, Symmetrical. negative: Scleral Icterus (R), Scleral Icterus (L) Neck: positive: Trachea midline, Normal Thyroid. negative: Tender, Lymphadenopathy (R), Lymphadenopathy (L), Tender midline Respiratory/Chest: positive: Lungs Clear, Normal Breath Sounds. negative: Chest Tender, Respiratory Distress, Accessory Muscle Use, Crackles, Rhonchi, Stridor, Wheezing Cardiovascular: positive: Regular Rhythm, Regular Rate. negative: Murmur Gastrointestinal/Abdominal: positive: Normal Bowel Sounds, Flat, Soft. negative : Tender, Organomegaly, Pulsatile Mass, Guarding, Rebound Musculoskeletal: positive: Normal Inspection. negative: CVA Tenderness, Vertebral Tenderness Extremity: positive: Normal Capillary Refill, Normal Range of Motion, Pelvis Stable, Other (no bony deformities or tenderness). negative: Tender, Coldness Integumentary: positive: Normal Color, Dry, Warm, Erythema (L forearm, consistent with chemical dermatitis), Other (ulcer to R medial foot) Neurologic: positive: Alert, Confused, Disoriented CBCD WBC 5.8 K/mm3 (4.0-10.0) 03/17/19 07:45 RBC 3.09 M/mm3 (3.60-5.2) L 03/17/19 07:45 Hgb 9.4 GM/dL (10.7-15.3) L 03/17/19 07:45 Hct 28.0 % (32.4-45.2) L 03/17/19 07:45 MCV 90.4 fl (80-96) 03/17/19 07:45 MCHC 33.8 g/dl (32.0-36.0) 03/17/19 07:45 RDW 15.5 % (11.6-15.6) 03/17/19 07:45 Plt Count 455 K/MM3 (134-434) H 03/17/19 07:45 MPV 6.9 fl (7.5-11.1) L 03/17/19 07:45 CMP Sodium 142 mmol/L (136-145) 03/17/19 07:45 Potassium 3.5 mmol/L (3.5-5.1) 03/17/19 07:45 Chloride 106 mmol/L (98-107) 03/17/19 07:45 Carbon Dioxide 31 mmol/L (21-32) 03/17/19 07:45 Anion Gap 4 MMOL/L (8-16) L 03/17/19 07:45 BUN 13.0 mg/dL (7-18) 03/17/19 07:45 Creatinine 0.4 mg/dL (0.55-1.3) L 03/17/19 07:45 Random Glucose 76 mg/dL (74-106) 03/17/19 07:45 Calcium 8.1 mg/dL (8.5-10.1) L 03/17/19 07:45 Total Bilirubin 0.1 mg/dL (0.2-1) L 03/17/19 07:45 AST 18 U/L (15-37) 03/17/19 07:45 ALT 16 U/L (13-61) 03/17/19 07:45 Alkaline Phosphatase 119 U/L (45-117) H 03/17/19 07:45 Total Protein 5.2 g/dl (6.4-8.2) L 03/17/19 07:45 Albumin 1.6 g/dl (3.4-5.0) L 03/17/19 07:45 PLAN: Maria E Chahal is an 83F with PMH dementia, hypothyroidism, anemia, recent hospitalization for PNA, and known seizure disorder without medication for the last 4 weeks sent from [facility] for 2x seizures. Patient has baseline dementia and is alert but communicates in short phrases but does not meaningfully communicate other than saying that she is cold or hungry when asked how she is feeling.Called [facility] and spoke to funeral location manager Ariadne, who reported that patient arrived 7 days prior of day of admission from [facility] where she was admitted for PND and IV Abx needing PICC, previously living with son Teo (#[phone]). On day of admission had 2 seizures, first at 11:15AM lasting ~60 seconds with shaking and facial twitching, resolved, then second seizures at 11:40AM. Per daughter at bedside during seizures, patient has known hx of seizures on medications, but paperwork does not indicate any seizure medications on medicine list, assumed that patient has not gotten seizure meds in a month since prior to hospitalization. Nursing denied any other symptoms prior, has been tolerating soft diet and performing rehab well. Daughter did not know when prior seizure was. Lamictal restarted at 25 mg and discussed with nurse who confirmed no abnormal motor activity in the past 24 hours. Can remain on this dose for now unless recurrent events occur at which point would consider increasing to 50 mg. EEG not available on weekend, can be considered for outpatient if patient able. Seizure free at this time. Would medically optimize, treat any underlying infection that can precipitate seizure, maintain adequate hydration, avoid sleep deprivation.
[2019-03-17] MEDS: PANTOPRAZOLE 40 MG TABLET PO SCH (11:25)
--- NOTE | 2019-03-17 13:04 | PN ---
Progress Note, Physician History of Present Illness: Pt is awake, denises CP, SOB, abd pain, nausea. Pt's dg is at bedside. - Current Medication List Current Medications: Active Medications Acetaminophen (Tylenol -) 650 mg PO Q6H PRN PRN Reason: PAIN Diltiazem HCl (Cardizem Cd -) 180 mg PO DAILY [facility] Last Admin: 03/17/19 09:34 Dose: 180 mg Famotidine (Pepcid -) 20 mg PO DAILY [facility] Last Admin: 03/17/19 09:38 Dose: 20 mg Ferrous Gluconate (Fergon -) 324 mg PO DAILY [facility] Last Admin: 03/17/19 09:34 Dose: 324 mg Furosemide (Lasix Injection -) 20 mg IVPUSH DAILY [facility] Last Admin: 03/17/19 09:35 Dose: 20 mg Heparin Sodium (Porcine) (Heparin -) 5,000 unit SQ BID [facility] Last Admin: 03/17/19 09:34 Dose: 5,000 unit Lamotrigine (Lamictal -) 25 mg PO DAILY [facility] Last Admin: 03/17/19 09:35 Dose: 25 mg Levothyroxine Sodium (Synthroid -) 75 mcg PO ACBK [facility] Last Admin: 03/17/19 06:44 Dose: 75 mcg Multivitamins/Minerals/Vitamin C (Tab-A-Vit -) 1 tab PO DAILY [facility] Last Admin: 03/17/19 09:35 Dose: 1 tab Pantoprazole Sodium (Protonix -) 40 mg PO DAILY [facility] Last Admin: 03/17/19 11:25 Dose: Not Given Potassium Phos/Sodium Phos (Phos-Nak Packet -) 1 packet PO DAILY [facility] Last Admin: 03/17/19 09:36 Dose: 1 packet - Objective Vital Signs: Vital Signs Temperature 97.8 F 03/17/19 10:00 Pulse Rate 79 03/17/19 10:00 Respiratory Rate 18 03/17/19 10:00 Blood Pressure 108/59 L 03/17/19 10:00 O2 Sat by Pulse Oximetry (%) 94 L 03/17/19 09:00 Constitutional: Yes: No Distress, Calm Cardiovascular: Yes: Regular Rate and Rhythm, S1, S2 Respiratory: Yes: Regular, Other (decrased BS at left base; coarse BS). No: Wheezes Gastrointestinal: Yes: Normal Bowel Sounds, Soft. No: Tenderness Edema: No Neurological: Yes: Alert, Oriented (family) Labs: CBC, BMP 03/17/19 07:45 03/17/19 07:45 Problem List - Problems (1) Seizure Code(s): R56.9 - UNSPECIFIED CONVULSIONS (2) Pleural effusion Code(s): J90 - PLEURAL EFFUSION, NOT ELSEWHERE CLASSIFIED (3) Heart failure Code(s): I50.9 - HEART FAILURE, UNSPECIFIED (4) Hypertension Code(s): I10 - ESSENTIAL (PRIMARY) HYPERTENSION (5) Hypothyroid Code(s): E03.9 - HYPOTHYROIDISM, UNSPECIFIED (6) Dementia Code(s): F03.90 - UNSPECIFIED DEMENTIA WITHOUT BEHAVIORAL DISTURBANCE Assessment/Plan Pt on IV Lasix; to monitor renal function ECHO i spending Pulmonary, Cardio, Neuro consults are appreciated. AM labs. Pt's care was d/w pt's dg (at bedside), all questions were answered. Pt's care was d/w pt's nurse.
--- NOTE | 2019-03-17 13:26 | PN ---
Progress Note (short form) - Note Progress Note: PULMONARY More alert, awake today. No fevers recorded. Vital Signs Period Temp Pulse Resp BP Sys/Moss Pulse Ox Last 24 Hr 97.3 F-98.0 F 78-83 18-20 105-133/59-71 94-94 Gen: NAD at rest Heart: RRR Lung: decreased breath sounds at the bases Abd: soft, nontender Ext: no edema CBC, BMP 03/17/19 07:45 03/17/19 07:45 Active Medications Acetaminophen (Tylenol -) 650 mg PO Q6H PRN PRN Reason: PAIN Albuterol/Ipratropium (Duoneb -) 1 amp NEB RTID [facility] Diltiazem HCl (Cardizem Cd -) 180 mg PO DAILY [facility] Last Admin: 03/17/19 09:34 Dose: 180 mg Famotidine (Pepcid -) 20 mg PO DAILY [facility] Last Admin: 03/17/19 09:38 Dose: 20 mg Ferrous Gluconate (Fergon -) 324 mg PO DAILY [facility] Last Admin: 03/17/19 09:34 Dose: 324 mg Furosemide (Lasix Injection -) 20 mg IVPUSH DAILY [facility] Last Admin: 03/17/19 09:35 Dose: 20 mg Heparin Sodium (Porcine) (Heparin -) 5,000 unit SQ BID [facility] Last Admin: 03/17/19 09:34 Dose: 5,000 unit Lamotrigine (Lamictal -) 25 mg PO DAILY [facility] Last Admin: 03/17/19 09:35 Dose: 25 mg Levothyroxine Sodium (Synthroid -) 75 mcg PO ACBK [facility] Last Admin: 03/17/19 06:44 Dose: 75 mcg Multivitamins/Minerals/Vitamin C (Tab-A-Vit -) 1 tab PO DAILY [facility] Last Admin: 03/17/19 09:35 Dose: 1 tab Potassium Phos/Sodium Phos (Phos-Nak Packet -) 1 packet PO DAILY [facility] Last Admin: 03/17/19 09:36 Dose: 1 packet A/P Bilateral Pleural Effusions Suspect Acute on Chronic Diastolic Heart Failure Recent Pneumonia HTN Hypothyroidism Dementia - continue lasix - monitor urine output, creatinine - echocardiogram - received antibiotics in the ER, can monitor off antibiotics for now - f/u cultures - O2 to keep SpO2 >90% - aspiration precautions - DVT prophylaxis Problem List - Problems (1) Pleural effusion Code(s): J90 - PLEURAL EFFUSION, NOT ELSEWHERE CLASSIFIED
[2019-03-17] MEDS: ALBUTEROL SO4 2.5/IPRATROPIUM 0.5 INH SOL 3 ML VIAL.NEB. NEB SCH ×2 (13:45→22:15)
[2019-03-18] MEDS: LEVOTHYROXINE NA 75 MCG TABLET (FP) PO SCH (06:19)
[2019-03-18] MEDS: ALBUTEROL SO4 2.5/IPRATROPIUM 0.5 INH SOL 3 ML VIAL.NEB. NEB SCH ×3 (07:35→21:00)
[2019-03-18 09:02] LABS: HEMATOCRIT 27.9 % (32.4-45.2); HEMOGLOBIN 9.5 GM/dL (10.7-15.3); MCH 30.9 pg (25.7-33.7); MCHC 34.1 g/dl (32.0-36.0); MEAN CELL VOLUME 90.5 fl (80-96); MEAN PLT VOLUME 6.8 fl (7.5-11.1); PLATELET COUNT 462 K/MM3 (134-434); RBC 3.09 M/mm3 (3.60-5.2); RDW 15.5 % (11.6-15.6); WHITE BLOOD COUNT 9.3 K/mm3 (4.0-10.0)
--- NOTE | 2019-03-18 09:03 | PN ---
Progress Note, Physician Chief Complaint: in bed NAD afebrile VSS UCx Pseudomonae Aer de jesus S NKDA NL creat - Current Medication List Current Medications: Active Medications Acetaminophen (Tylenol -) 650 mg PO Q6H PRN PRN Reason: PAIN Albuterol/Ipratropium (Duoneb -) 1 amp NEB RTID [facility] Last Admin: 03/18/19 07:35 Dose: 1 amp Diltiazem HCl (Cardizem Cd -) 180 mg PO DAILY [facility] Last Admin: 03/17/19 09:34 Dose: 180 mg Famotidine (Pepcid -) 20 mg PO DAILY [facility] Last Admin: 03/17/19 09:38 Dose: 20 mg Ferrous Gluconate (Fergon -) 324 mg PO DAILY [facility] Last Admin: 03/17/19 09:34 Dose: 324 mg Furosemide (Lasix Injection -) 20 mg IVPUSH DAILY [facility] Last Admin: 03/17/19 09:35 Dose: 20 mg Heparin Sodium (Porcine) (Heparin -) 5,000 unit SQ BID [facility] Last Admin: 03/17/19 22:17 Dose: 5,000 unit Lamotrigine (Lamictal -) 25 mg PO DAILY [facility] Last Admin: 03/17/19 09:35 Dose: 25 mg Levothyroxine Sodium (Synthroid -) 75 mcg PO ACBK [facility] Last Admin: 03/18/19 06:19 Dose: 75 mcg Multivitamins/Minerals/Vitamin C (Tab-A-Vit -) 1 tab PO DAILY [facility] Last Admin: 03/17/19 09:35 Dose: 1 tab Potassium Phos/Sodium Phos (Phos-Nak Packet -) 1 packet PO DAILY [facility] Last Admin: 03/17/19 09:36 Dose: 1 packet - Objective Vital Signs: Vital Signs Temperature 99.4 F 03/18/19 06:00 Pulse Rate 94 H 03/18/19 06:00 Respiratory Rate 18 03/18/19 06:00 Blood Pressure 120/66 03/18/19 06:00 O2 Sat by Pulse Oximetry (%) 95 03/17/19 21:00 Constitutional: Yes: No Distress, Calm Eyes: Yes: Conjunctiva Clear HENT: Yes: Atraumatic Neck: Yes: Supple Cardiovascular: Yes: Regular Rate and Rhythm Respiratory: Yes: Diminished Gastrointestinal: Yes: Soft. No: Tenderness Genitourinary: No: Hematuria Musculoskeletal: No: Joint Stiffness, Joint Swelling Extremities: No: Cold, Cool Edema: No Integumentary: No: Rash Neurological: Yes: Alert, Other (sleeping, arousable) ...Motor Strength: WNL Psychiatric: Yes: Alert Labs: CBC, BMP 03/18/19 08:30 - ....Imaging Other: Report Reviewed Assessment/Plan Maria E Chahal is an 83F with PMH dementia, hypothyroidism, anemia, recent hospitalization for PNA and pancreatitis, and known seizure disorder sent from [facility] for 2x seizures. admit; neurology eval pleural effusions: cardiology and pulmonary eval; check echo anemia w/u advanced directives? UTI PSeudomonas Po levaquin 250 mg/d aspiration PFX, thickened fluids, purree diet; d/w staff
[2019-03-18] MEDS ORDERED: PT OWN MED DRAWER 7, Y5N ONE ×2 (09:17→19:32)
[2019-03-18 09:30] LABS: ALBUMIN 1.6 g/dl (3.4-5.0); BILIRUBIN,TOTAL 0.3 mg/dL (0.2-1); BLOOD UREA NITROGEN 11.4 mg/dL (7-18); CALCIUM 7.6 mg/dL (8.5-10.1); CREATININE 0.5 mg/dL (0.55-1.3); POTASSIUM 3.7 mmol/L (3.5-5.1); TOT PROT 5.4 g/dl (6.4-8.2)
[2019-03-18] MEDS: FAMOTIDINE 20 MG TABLET PO SCH (09:33)
[2019-03-18] MEDS: NAPH,MB-DB/K PH,MBDB POWDER PACKET PO SCH (09:33)
[2019-03-18] MEDS: MULTIVITAMINS (DAILY MVI) TABLET (FP) PO SCH (09:33)
[2019-03-18] MEDS: FUROSEMIDE 40 MG/4 ML INJECTABLE VIAL IVPUSH SCH (09:34)
[2019-03-18] MEDS: FERROUS GLUCONATE 324 MG TAB (FP) PO SCH (09:34)
[2019-03-18] MEDS: HEPARIN NA (PORCINE) 5,000 UNITS/ML 1ML VIAL SQ SCH ×2 (09:34→21:49)
[2019-03-18] MEDS: lamoTRIgine 25 MG TABLET PO SCH (09:35)
--- NOTE | 2019-03-18 10:05 | EKG ---
Test Reason : Blood Pressure : / mmHG Vent. Rate : 105 BPM Atrial Rate : 097 BPM P-R Int : 142 ms QRS Dur : 074 ms QT Int : 370 ms P-R-T Axes : 087 -06 097 degrees QTc Int : 489 ms SINUS RHYTHM WITH PREMATURE SUPRAVENTRICULAR COMPLEXES ANTEROSEPTAL INFARCT (CITED ON OR BEFORE 15-MAR-2019) ABNORMAL ECG WHEN COMPARED WITH ECG OF 15-MAR-2019 13:44, NO SIGNIFICANT CHANGE WAS FOUND Confirmed by TIFFANIE RAMOS MD ([id number]) on 03/18/2019 10:05:32 AM Referred By: Confirmed By:TIFFANIE RAMOS MD
--- NOTE | 2019-03-18 10:59 | PN ---
Progress Note (short form) - Note Progress Note: s: no cp sob palps dizzy Current Medications Generic Name Dose Route Start Last Admin Trade Name Freq PRN Reason Stop Dose Admin Acetaminophen 650 mg 03/16/19 12:34 Tylenol - PO Q6H PRN PAIN Albuterol/Ipratropium 1 amp 03/17/19 14:00 03/18/19 07:35 Duoneb - NEB 1 amp RTID [facility] Administration Diltiazem HCl 180 mg 03/16/19 10:00 03/18/19 09:35 Cardizem Cd - PO 180 mg DAILY [facility] Administration Famotidine 20 mg 03/16/19 16:00 03/18/19 09:33 Pepcid - PO 20 mg DAILY [facility] Administration Ferrous Gluconate 324 mg 03/16/19 10:00 03/18/19 09:34 Fergon - PO 324 mg DAILY [facility] Administration Furosemide 20 mg 03/16/19 13:15 03/18/19 09:34 Lasix Injection - IVPUSH 20 mg DAILY [facility] Administration Heparin Sodium (Porcine) 5,000 unit 03/16/19 22:00 03/18/19 09:34 Heparin - SQ 5,000 unit BID [facility] Administration Lamotrigine 25 mg 03/16/19 10:00 03/18/19 09:35 Lamictal - PO 25 mg DAILY [facility] Administration Levofloxacin 250 mg 03/18/19 11:00 Levaquin - PO DAILY [facility] Levothyroxine Sodium 75 mcg 03/16/19 07:00 03/18/19 06:19 Synthroid - PO 75 mcg ACBK [facility] Administration Multivitamins/Minerals/Vitamin C 1 tab 03/17/19 10:00 03/18/19 09:33 Tab-A-Vit - PO 1 tab DAILY [facility] Administration Potassium Phos/Sodium Phos 1 packet 03/16/19 10:00 03/18/19 09:33 Phos-Nak Packet - PO 1 packet DAILY [facility] Administration Vital Signs Period Temp Pulse Resp BP Sys/Moss Pulse Ox Last 24 Hr 97.6 F-99.4 F 74-94 18-18 116-125/56-66 95 nad no jvd rrr s1s2 no mrg dec bs bases bl, poor eff awake, confused no jaundice diaphoresis pos dp pt no carotid bruits abd nt nd pos bs no le e/c/c Laboratory Last Values WBC 9.3 K/mm3 (4.0-10.0) 03/18/19 08:30 RBC 3.09 M/mm3 (3.60-5.2) L 03/18/19 08:30 Hgb 9.5 GM/dL (10.7-15.3) L 03/18/19 08:30 Hct 27.9 % (32.4-45.2) L 03/18/19 08:30 MCV 90.5 fl (80-96) 03/18/19 08:30 MCH 30.9 pg (25.7-33.7) 03/18/19 08:30 MCHC 34.1 g/dl (32.0-36.0) 03/18/19 08:30 RDW 15.5 % (11.6-15.6) 03/18/19 08:30 Plt Count 462 K/MM3 (134-434) H 03/18/19 08:30 MPV 6.8 fl (7.5-11.1) L 03/18/19 08:30 Absolute Neuts (auto) 4.5 K/mm3 (1.5-8.0) 03/17/19 07:45 Neutrophils % 77.7 % (42.8-82.8) 03/17/19 07:45 Lymphocytes % 13.4 % (8-40) D 03/17/19 07:45 Monocytes % 7.9 % (3.8-10.2) 03/17/19 07:45 Eosinophils % 0.3 % (0-4.5) 03/17/19 07:45 Basophils % 0.7 % (0-2.0) 03/17/19 07:45 Nucleated RBC % 0 % (0-0) 03/17/19 07:45 ESR 74 mm/hr (0-30) H 03/17/19 07:45 Retic Count 1.01 % (0.5-1.5) 03/17/19 07:45 Sodium 141 mmol/L (136-145) 03/18/19 08:30 Potassium 3.7 mmol/L (3.5-5.1) 03/18/19 08:30 Chloride 104 mmol/L (98-107) 03/18/19 08:30 Carbon Dioxide 32 mmol/L (21-32) 03/18/19 08:30 Anion Gap 4 MMOL/L (8-16) L 03/18/19 08:30 BUN 11.4 mg/dL (7-18) 03/18/19 08:30 Creatinine 0.5 mg/dL (0.55-1.3) L 03/18/19 08:30 Est GFR (CKD-EPI)AfAm 103.01 03/18/19 08:30 Est GFR (CKD-EPI)NonAf 88.88 03/18/19 08:30 Random Glucose 79 mg/dL (74-106) 03/18/19 08:30 Calcium 7.6 mg/dL (8.5-10.1) L 03/18/19 08:30 Iron 25 ug/dL (50-175) L 03/17/19 07:45 Ferritin 406.4 ng/ml (8-388) H 03/17/19 07:45 Total Bilirubin 0.3 mg/dL (0.2-1) 03/18/19 08:30 AST 20 U/L (15-37) 03/18/19 08:30 ALT 18 U/L (13-61) 03/18/19 08:30 Alkaline Phosphatase 125 U/L (45-117) H 03/18/19 08:30 LD Total 183 U/L (84-246) 03/17/19 07:45 C-Reactive Protein 5.3 MG/DL (0.00-0.3) H 03/17/19 07:45 B-Natriuretic Peptide 1442.6 pg/ml (5-450) H 03/15/19 15:33 Total Protein 5.4 g/dl (6.4-8.2) L 03/18/19 08:30 Albumin 1.6 g/dl (3.4-5.0) L 03/18/19 08:30 Vitamin B12 785 pg/ml (193-986) 03/17/19 07:45 Serum Folate 5 ng/mL (3.1-17.5) 03/17/19 07:45 TSH 1.80 uIU/ml (0.358-3.74) 03/17/19 07:45 Free T4 1.14 ng/dl (0.76-1.46) 03/16/19 08:05 Urine Color Yellow 03/16/19 00:20 Urine Appearance Cloudy 03/16/19 00:20 Urine pH 7.5 (5.0-8.0) 03/16/19 00:20 Ur Specific Clio 1.013 (1.010-1.035) 03/16/19 00:20 Urine Protein 1+ (NEGATIVE) H 03/16/19 00:20 Urine Glucose (UA) Negative (NEGATIVE) 03/16/19 00:20 Urine Ketones Negative (NEGATIVE) 03/16/19 00:20 Urine Blood 2+ (NEGATIVE) H 03/16/19 00:20 Urine Nitrite Positive (NEGATIVE) H 03/16/19 00:20 Urine Bilirubin Negative (NEGATIVE) 03/16/19 00:20 Urine Urobilinogen 0.2 mg/dL (0.2-1.0) 03/16/19 00:20 Ur Leukocyte Esterase 3+ (NEGATIVE) H 03/16/19 00:20 Urine WBC (Auto) 239 /hpf (0-5) 03/16/19 00:20 Urine RBC (Auto) 47 /hpf (0-4) 03/16/19 00:20 Urine Casts (Auto) 0 /lpf (0-8) 03/16/19 00:20 U Epithel Cells (Auto) 0.2 /HPF (0-5/HPF) 03/16/19 00:20 Urine Bacteria (Auto) 27.3 /hpf (NEGATIVE) 03/16/19 00:20 ecg: sr, nl intervals, no ischemic changes chest ct: mod bl effs a/p: 83 f hx dementia, htn, hypothyroid, sent from [facility] for seizures. pleural effs, chf: -pt with mod bl pleural effs -recent admit for pna, possibly related to infection vs chf/vol overload -cont lasix 20 iv qd and monitor daily chem7. check echo. check cxr today to see if effs better. htn: -cont dilt hypothyroid: -on synthroid, tsh wnl
--- NOTE | 2019-03-18 11:13 | PN ---
Progress Note (short form) - Note Progress Note: Neurology Chief Complaint: Seizure - History of Present Illness Maria E Chahal is an 83F with PMH dementia, hypothyroidism, anemia, recent hospitalization for PNA, and known seizure disorder without medication for the last 4 weeks sent from [facility] for 2x seizures. Patient has baseline dementia and is alert but communicates in short phrases but does not meaningfully communicate other than saying that she is cold or hungry when asked how she is feeling.Called [facility] and spoke to retail pharmacy manager Ariadne, who reported that patient arrived 7 days prior of day of admission from [facility] where she was admitted for PND and IV Abx needing PICC, previously living with son Teo (#[phone]). On day of admission had 2 seizures, first at 11:15AM lasting ~60 seconds with shaking and facial twitching, resolved, then second seizures at 11:40AM. Per daughter at bedside during seizures, patient has known hx of seizures on medications, but paperwork does not indicate any seizure medications on medicine list, assumed that patient has not gotten seizure meds in a month since prior to hospitalization. Nursing denied any other symptoms prior, has been tolerating soft diet and performing rehab well. Daughter did not know when prior seizure was. Reportedly on Lamictal 25mg which is a low dose of the medication. cCan remain on this dose for now unless recurrent events occur at which point would consider increasing to 50 mg. Active Medications Acetaminophen (Tylenol -) 650 mg PO Q6H PRN PRN Reason: PAIN Albuterol/Ipratropium (Duoneb -) 1 amp NEB RTID [facility] Last Admin: 03/18/19 07:35 Dose: 1 amp Diltiazem HCl (Cardizem Cd -) 180 mg PO DAILY [facility] Last Admin: 03/18/19 09:35 Dose: 180 mg Famotidine (Pepcid -) 20 mg PO DAILY [facility] Last Admin: 03/18/19 09:33 Dose: 20 mg Ferrous Gluconate (Fergon -) 324 mg PO DAILY [facility] Last Admin: 03/18/19 09:34 Dose: 324 mg Furosemide (Lasix Injection -) 20 mg IVPUSH DAILY [facility] Last Admin: 03/18/19 09:34 Dose: 20 mg Heparin Sodium (Porcine) (Heparin -) 5,000 unit SQ BID [facility] Last Admin: 03/18/19 09:34 Dose: 5,000 unit Lamotrigine (Lamictal -) 25 mg PO DAILY [facility] Last Admin: 03/18/19 09:35 Dose: 25 mg Levofloxacin (Levaquin -) 250 mg PO DAILY [facility] Last Admin: 03/18/19 11:13 Dose: 250 mg Levothyroxine Sodium (Synthroid -) 75 mcg PO ACBK [facility] Last Admin: 03/18/19 06:19 Dose: 75 mcg Multivitamins/Minerals/Vitamin C (Tab-A-Vit -) 1 tab PO DAILY [facility] Last Admin: 03/18/19 09:33 Dose: 1 tab Potassium Phos/Sodium Phos (Phos-Nak Packet -) 1 packet PO DAILY [facility] Last Admin: 03/18/19 09:33 Dose: 1 packet *Physical Exam - Vital Signs Vital Signs Period Temp Pulse Resp BP Sys/Moss Pulse Ox Last 24 Hr 97.6 F-99.4 F 74-94 18-18 116-125/56-66 95 General Appearance: Yes: Nourished, Cachetic. No: Apparent Distress HEENT: positive: EOMI, KATHE, Normal Voice, Symmetrical. negative: Scleral Icterus (R), Scleral Icterus (L) Neck: positive: Trachea midline, Normal Thyroid. negative: Tender, Lymphadenopathy (R), Lymphadenopathy (L), Tender midline Respiratory/Chest: positive: Lungs Clear, Normal Breath Sounds. negative: Chest Tender, Respiratory Distress, Accessory Muscle Use, Crackles, Rhonchi, Stridor, Wheezing Cardiovascular: positive: Regular Rhythm, Regular Rate. negative: Murmur Gastrointestinal/Abdominal: positive: Normal Bowel Sounds, Flat, Soft. negative : Tender, Organomegaly, Pulsatile Mass, Guarding, Rebound Musculoskeletal: positive: Normal Inspection. negative: CVA Tenderness, Vertebral Tenderness Extremity: positive: Normal Capillary Refill, Normal Range of Motion, Pelvis Stable, Other (no bony deformities or tenderness). negative: Tender, Coldness Integumentary: positive: Normal Color, Dry, Warm, Erythema (L forearm, consistent with chemical dermatitis), Other (ulcer to R medial foot) Neurologic: positive: Alert, Confused, Disoriented CBCD WBC 9.3 K/mm3 (4.0-10.0) 03/18/19 08:30 RBC 3.09 M/mm3 (3.60-5.2) L 03/18/19 08:30 Hgb 9.5 GM/dL (10.7-15.3) L 03/18/19 08:30 Hct 27.9 % (32.4-45.2) L 03/18/19 08:30 MCV 90.5 fl (80-96) 03/18/19 08:30 MCHC 34.1 g/dl (32.0-36.0) 03/18/19 08:30 RDW 15.5 % (11.6-15.6) 03/18/19 08:30 Plt Count 462 K/MM3 (134-434) H 03/18/19 08:30 MPV 6.8 fl (7.5-11.1) L 03/18/19 08:30 CMP Sodium 141 mmol/L (136-145) 03/18/19 08:30 Potassium 3.7 mmol/L (3.5-5.1) 03/18/19 08:30 Chloride 104 mmol/L (98-107) 03/18/19 08:30 Carbon Dioxide 32 mmol/L (21-32) 03/18/19 08:30 Anion Gap 4 MMOL/L (8-16) L 03/18/19 08:30 BUN 11.4 mg/dL (7-18) 03/18/19 08:30 Creatinine 0.5 mg/dL (0.55-1.3) L 03/18/19 08:30 Random Glucose 79 mg/dL (74-106) 03/18/19 08:30 Calcium 7.6 mg/dL (8.5-10.1) L 03/18/19 08:30 Total Bilirubin 0.3 mg/dL (0.2-1) 03/18/19 08:30 AST 20 U/L (15-37) 03/18/19 08:30 ALT 18 U/L (13-61) 03/18/19 08:30 Alkaline Phosphatase 125 U/L (45-117) H 03/18/19 08:30 Total Protein 5.4 g/dl (6.4-8.2) L 03/18/19 08:30 Albumin 1.6 g/dl (3.4-5.0) L 03/18/19 08:30 PLAN: Maria E Chahal is an 83F with PMH dementia, hypothyroidism, anemia, recent hospitalization for PNA, and known seizure disorder without medication for the last 4 weeks sent from [facility] for 2x seizures. Patient has baseline dementia and is alert but communicates in short phrases but does not meaningfully communicate other than saying that she is cold or hungry when asked how she is feeling.Called [facility] and spoke to retail pharmacy manager Ariadne, who reported that patient arrived 7 days prior of day of admission from [facility] where she was admitted for PND and IV Abx needing PICC, previously living with son Teo (#[phone]). On day of admission had 2 seizures, first at 11:15AM lasting ~60 seconds with shaking and facial twitching, resolved, then second seizures at 11:40AM. Per daughter at bedside during seizures, patient has known hx of seizures on medications, but paperwork does not indicate any seizure medications on medicine list, assumed that patient has not gotten seizure meds in a month since prior to hospitalization. Nursing denied any other symptoms prior, has been tolerating soft diet and performing rehab well. Daughter did not know when prior seizure was. Lamictal restarted at 25 mg and can remain on this dose for now unless recurrent events occur at which point would consider increasing to 50 mg. Seizure free at this time. Would medically optimize, treat any underlying infection that can precipitate seizure , maintain adequate hydration, avoid sleep deprivation.
--- NOTE | 2019-03-18 11:45 | PN ---
Progress Note (short form) - Note Progress Note: Awake but confused. NAD. No acute events overnight. Intake & Output 03/15/19 03/16/19 03/17/19 03/18/19 23:59 23:59 23:59 23:59 Intake Total 200 400 Balance 200 400 Weight 78 lb 1.6 oz 75 lb 9.6 oz 93 lb 9.6 oz 72 lb 6 oz Last Vital Signs Temp Pulse Resp BP Pulse Ox 99.4 F 94 H 18 120/66 95 03/18/19 06:00 03/18/19 06:00 03/18/19 06:00 03/18/19 06:00 03/17/19 21:00 Active Medications Acetaminophen (Tylenol -) 650 mg PO Q6H PRN PRN Reason: PAIN Albuterol/Ipratropium (Duoneb -) 1 amp NEB RTID [facility] Last Admin: 03/18/19 07:35 Dose: 1 amp Diltiazem HCl (Cardizem Cd -) 180 mg PO DAILY [facility] Last Admin: 03/18/19 09:35 Dose: 180 mg Famotidine (Pepcid -) 20 mg PO DAILY [facility] Last Admin: 03/18/19 09:33 Dose: 20 mg Ferrous Gluconate (Fergon -) 324 mg PO DAILY [facility] Last Admin: 03/18/19 09:34 Dose: 324 mg Furosemide (Lasix Injection -) 20 mg IVPUSH DAILY [facility] Last Admin: 03/18/19 09:34 Dose: 20 mg Heparin Sodium (Porcine) (Heparin -) 5,000 unit SQ BID [facility] Last Admin: 03/18/19 09:34 Dose: 5,000 unit Lamotrigine (Lamictal -) 25 mg PO DAILY [facility] Last Admin: 03/18/19 09:35 Dose: 25 mg Levofloxacin (Levaquin -) 250 mg PO DAILY [facility] Last Admin: 03/18/19 11:13 Dose: 250 mg Levothyroxine Sodium (Synthroid -) 75 mcg PO ACBK [facility] Last Admin: 03/18/19 06:19 Dose: 75 mcg Multivitamins/Minerals/Vitamin C (Tab-A-Vit -) 1 tab PO DAILY [facility] Last Admin: 03/18/19 09:33 Dose: 1 tab Potassium Phos/Sodium Phos (Phos-Nak Packet -) 1 packet PO DAILY [facility] Last Admin: 03/18/19 09:33 Dose: 1 packet Gen: NAD at rest Heart: RRR Lung: decreased breath sounds at the bases Abd: soft, nontender Ext: no edema Laboratory Results - last 24 hr 03/17/19 03/18/19 03/18/19 07:45 08:30 08:30 WBC 9.3 RBC 3.09 L Hgb 9.5 L Hct 27.9 L MCV 90.5 MCH 30.9 MCHC 34.1 RDW 15.5 Plt Count 462 H MPV 6.8 L ESR 74 H Sodium 141 Potassium 3.7 Chloride 104 Carbon Dioxide 32 Anion Gap 4 L BUN 11.4 Creatinine 0.5 L Est GFR (CKD-EPI)AfAm 103.01 Est GFR (CKD-EPI)NonAf 88.88 Random Glucose 79 Calcium 7.6 L Total Bilirubin 0.3 AST 20 ALT 18 Alkaline Phosphatase 125 H Total Protein 5.4 L Albumin 1.6 L Problem List - Problems (1) Pleural effusion Code(s): J90 - PLEURAL EFFUSION, NOT ELSEWHERE CLASSIFIED A/P Bilateral Pleural Effusions Suspect Acute on Chronic Diastolic Heart Failure Recent Pneumonia HTN Hypothyroidism Dementia - Lasix - monitor urine output, creatinine - Low threshold to stop antibiotics - f/u cultures - O2 to keep SpO2 >90% - aspiration precautions - DVT prophylaxis Dr Vigil
[2019-03-18 14:38] VITALS: BMI 14.1
[2019-03-19] MEDS: LEVOTHYROXINE NA 75 MCG TABLET (FP) PO SCH (06:06)
--- NOTE | 2019-03-19 06:40 | PN ---
Progress Note, Physician Chief Complaint: sleeping in bed comfortable UCx + on po levaquin - Current Medication List Current Medications: Active Medications Acetaminophen (Tylenol -) 650 mg PO Q6H PRN PRN Reason: PAIN Albuterol/Ipratropium (Duoneb -) 1 amp NEB RTID [facility] Last Admin: 03/18/19 21:00 Dose: 1 amp Diltiazem HCl (Cardizem Cd -) 180 mg PO DAILY [facility] Last Admin: 03/18/19 09:35 Dose: 180 mg Famotidine (Pepcid -) 20 mg PO DAILY [facility] Last Admin: 03/18/19 09:33 Dose: 20 mg Ferrous Gluconate (Fergon -) 324 mg PO DAILY [facility] Last Admin: 03/18/19 09:34 Dose: 324 mg Furosemide (Lasix Injection -) 20 mg IVPUSH DAILY [facility] Last Admin: 03/18/19 09:34 Dose: 20 mg Heparin Sodium (Porcine) (Heparin -) 5,000 unit SQ BID [facility] Last Admin: 03/18/19 21:49 Dose: 5,000 unit Lamotrigine (Lamictal -) 25 mg PO DAILY [facility] Last Admin: 03/18/19 09:35 Dose: 25 mg Levofloxacin (Levaquin -) 250 mg PO DAILY [facility] Last Admin: 03/18/19 11:13 Dose: 250 mg Levothyroxine Sodium (Synthroid -) 75 mcg PO ACBK [facility] Last Admin: 03/19/19 06:06 Dose: 75 mcg Multivitamins/Minerals/Vitamin C (Tab-A-Vit -) 1 tab PO DAILY [facility] Last Admin: 03/18/19 09:33 Dose: 1 tab Potassium Phos/Sodium Phos (Phos-Nak Packet -) 1 packet PO DAILY [facility] Last Admin: 03/18/19 09:33 Dose: 1 packet - Objective Vital Signs: Vital Signs Temperature 97.8 F 03/18/19 18:00 Pulse Rate 107 H 03/18/19 21:48 Respiratory Rate 18 03/18/19 21:48 Blood Pressure 114/68 03/18/19 21:48 O2 Sat by Pulse Oximetry (%) 96 03/18/19 21:00 Constitutional: Yes: No Distress, Calm HENT: Yes: Atraumatic Neck: Yes: Supple Cardiovascular: Yes: Regular Rate and Rhythm Respiratory: Yes: Diminished Gastrointestinal: Yes: Soft. No: Tenderness Genitourinary: No: Hematuria Musculoskeletal: No: Joint Stiffness, Joint Swelling Extremities: No: Cold, Cool Edema: No Integumentary: No: Rash, Venous Stasis Changes Neurological: Yes: Other (sleeping). No: Alert Psychiatric: No: Alert, Agitated Labs: CBC, BMP 03/18/19 08:30 03/18/19 08:30 - ....Imaging Other: Report Reviewed Assessment/Plan Maria E Chahal is an 83F with PMH dementia, hypothyroidism, anemia, recent hospitalization for PNA and pancreatitis, and known seizure disorder sent from [facility] for 2x seizures. neurology f/u; pleural effusions: cardiology and pulmonary eval; check echo d.w staff anemia w/u DIANA d/w pt's daughter / phone she said pt had GI w.u recently negative and she would not put her through w.u again, I asked for copies of records she will get them for us; also daughter said she would not do any aggressive intervention / treatment if she would have malignancy given her status and advanced dementia/ advanced directives? UTI PSeudomonas Po levaquin 250 mg/d dw pt she is aware of ATB tx, she said pt has an old pessary and she asked for [employer] DEVELOPER eval to remove it; will ask [employer] DEVELOPER consult , might need to be done as outpt d/w daughter - she agreed aspiration PFX, thickened fluids, purree diet; d/w staff
[2019-03-19] MEDS: ALBUTEROL SO4 2.5/IPRATROPIUM 0.5 INH SOL 3 ML VIAL.NEB. NEB SCH ×3 (07:25→20:25)
--- NOTE | 2019-03-19 09:09 | PN ---
Progress Note (short form) - Note Progress Note: Neurology Chief Complaint: Seizure - History of Present Illness Maria E Chahal is an 83F with PMH dementia, hypothyroidism, anemia, recent hospitalization for PNA, and known seizure disorder without medication for the last 4 weeks sent from [facility] for 2x seizures. Patient has baseline dementia and is alert but communicates in short phrases but does not meaningfully communicate other than saying that she is cold or hungry when asked how she is feeling.Called [facility] and spoke to integrity manager Ariadne, who reported that patient arrived 7 days prior of day of admission from [facility] where she was admitted for PND and IV Abx needing PICC, previously living with son Teo (#[phone]). On day of admission had 2 seizures, first at 11:15AM lasting ~60 seconds with shaking and facial twitching, resolved, then second seizures at 11:40AM. Per daughter at bedside during seizures, patient has known hx of seizures on medications, but paperwork does not indicate any seizure medications on medicine list, assumed that patient has not gotten seizure meds in a month since prior to hospitalization. Nursing denied any other symptoms prior, has been tolerating soft diet and performing rehab well. Daughter did not know when prior seizure was. Reportedly on Lamictal 25mg which is a low dose of the medication. cCan remain on this dose for now unless recurrent events occur at which point would consider increasing to 50 mg. Remains on Levaquin for urinary tract infection, afebrile and normal white count. Active Medications Acetaminophen (Tylenol -) 650 mg PO Q6H PRN PRN Reason: PAIN Albuterol/Ipratropium (Duoneb -) 1 amp NEB RTID [facility] Last Admin: 03/19/19 07:25 Dose: Not Given Diltiazem HCl (Cardizem Cd -) 180 mg PO DAILY [facility] Last Admin: 03/18/19 09:35 Dose: 180 mg Famotidine (Pepcid -) 20 mg PO DAILY [facility] Last Admin: 03/18/19 09:33 Dose: 20 mg Ferrous Gluconate (Fergon -) 324 mg PO DAILY [facility] Last Admin: 03/18/19 09:34 Dose: 324 mg Furosemide (Lasix Injection -) 20 mg IVPUSH DAILY [facility] Last Admin: 03/18/19 09:34 Dose: 20 mg Heparin Sodium (Porcine) (Heparin -) 5,000 unit SQ BID [facility] Last Admin: 03/18/19 21:49 Dose: 5,000 unit Lamotrigine (Lamictal -) 25 mg PO DAILY [facility] Last Admin: 03/18/19 09:35 Dose: 25 mg Levofloxacin (Levaquin -) 250 mg PO DAILY [facility] Last Admin: 03/18/19 11:13 Dose: 250 mg Levothyroxine Sodium (Synthroid -) 75 mcg PO ACBK [facility] Last Admin: 03/19/19 06:06 Dose: 75 mcg Multivitamins/Minerals/Vitamin C (Tab-A-Vit -) 1 tab PO DAILY [facility] Last Admin: 03/18/19 09:33 Dose: 1 tab Potassium Phos/Sodium Phos (Phos-Nak Packet -) 1 packet PO DAILY [facility] Last Admin: 03/18/19 09:33 Dose: 1 packet *Physical Exam - Vital Signs Vital Signs Period Temp Pulse Resp BP Sys/Moss Pulse Ox Last 24 Hr 97.2 F-98.8 F 86-107 18-18 100-121/51-68 96 General Appearance: Yes: Nourished, Cachetic. No: Apparent Distress HEENT: positive: EOMI, KATHE, Normal Voice, Symmetrical. negative: Scleral Icterus (R), Scleral Icterus (L) Neck: positive: Trachea midline, Normal Thyroid. negative: Tender, Lymphadenopathy (R), Lymphadenopathy (L), Tender midline Respiratory/Chest: positive: Lungs Clear, Normal Breath Sounds. negative: Chest Tender, Respiratory Distress, Accessory Muscle Use, Crackles, Rhonchi, Stridor, Wheezing Cardiovascular: positive: Regular Rhythm, Regular Rate. negative: Murmur Gastrointestinal/Abdominal: positive: Normal Bowel Sounds, Flat, Soft. negative : Tender, Organomegaly, Pulsatile Mass, Guarding, Rebound Musculoskeletal: positive: Normal Inspection. negative: CVA Tenderness, Vertebral Tenderness Extremity: positive: Normal Capillary Refill, Normal Range of Motion, Pelvis Stable, Other (no bony deformities or tenderness). negative: Tender, Coldness Integumentary: positive: Normal Color, Dry, Warm, Erythema (L forearm, consistent with chemical dermatitis), Other (ulcer to R medial foot) Neurologic: positive: Alert, Confused, Disoriented CBCD WBC 9.3 K/mm3 (4.0-10.0) 03/18/19 08:30 RBC 3.09 M/mm3 (3.60-5.2) L 03/18/19 08:30 Hgb 9.5 GM/dL (10.7-15.3) L 03/18/19 08:30 Hct 27.9 % (32.4-45.2) L 03/18/19 08:30 MCV 90.5 fl (80-96) 03/18/19 08:30 MCHC 34.1 g/dl (32.0-36.0) 03/18/19 08:30 RDW 15.5 % (11.6-15.6) 03/18/19 08:30 Plt Count 462 K/MM3 (134-434) H 03/18/19 08:30 MPV 6.8 fl (7.5-11.1) L 03/18/19 08:30 CMP Sodium 141 mmol/L (136-145) 03/18/19 08:30 Potassium 3.7 mmol/L (3.5-5.1) 03/18/19 08:30 Chloride 104 mmol/L (98-107) 03/18/19 08:30 Carbon Dioxide 32 mmol/L (21-32) 03/18/19 08:30 Anion Gap 4 MMOL/L (8-16) L 03/18/19 08:30 BUN 11.4 mg/dL (7-18) 03/18/19 08:30 Creatinine 0.5 mg/dL (0.55-1.3) L 03/18/19 08:30 Random Glucose 79 mg/dL (74-106) 03/18/19 08:30 Calcium 7.6 mg/dL (8.5-10.1) L 03/18/19 08:30 Total Bilirubin 0.3 mg/dL (0.2-1) 03/18/19 08:30 AST 20 U/L (15-37) 03/18/19 08:30 ALT 18 U/L (13-61) 03/18/19 08:30 Alkaline Phosphatase 125 U/L (45-117) H 03/18/19 08:30 Total Protein 5.4 g/dl (6.4-8.2) L 03/18/19 08:30 Albumin 1.6 g/dl (3.4-5.0) L 03/18/19 08:30 PLAN: Maria E Chahal is an 83F with PMH dementia, hypothyroidism, anemia, recent hospitalization for PNA, and known seizure disorder without medication for the last 4 weeks sent from [facility] for 2x seizures. Patient has baseline dementia and is alert but communicates in short phrases but does not meaningfully communicate other than saying that she is cold or hungry when asked how she is feeling.Called [facility] and spoke to integrity manager Ariadne, who reported that patient arrived 7 days prior of day of admission from [facility] where she was admitted for PND and IV Abx needing PICC, previously living with son Teo (#[phone]). On day of admission had 2 seizures, first at 11:15AM lasting ~60 seconds with shaking and facial twitching, resolved, then second seizures at 11:40AM. Per daughter at bedside during seizures, patient has known hx of seizures on medications, but paperwork does not indicate any seizure medications on medicine list, assumed that patient has not gotten seizure meds in a month since prior to hospitalization. Nursing denied any other symptoms prior, has been tolerating soft diet and performing rehab well. Daughter did not know when prior seizure was. Lamictal restarted at 25 mg and can remain on this dose for now unless recurrent events occur at which point would consider increasing to 50 mg. Seizure free at this time. Would medically optimize, Remains on Levaquin for urinary tract infection, afebrile and normal white count. Maintain adequate hydration, avoid sleep deprivation.
[2019-03-19] MEDS ORDERED: PT OWN MED DRAWER 7, Y5N ONE (09:19)
[2019-03-19] MEDS: NAPH,MB-DB/K PH,MBDB POWDER PACKET PO SCH (09:28)
[2019-03-19] MEDS: lamoTRIgine 25 MG TABLET PO SCH (09:28)
[2019-03-19] MEDS: FUROSEMIDE 40 MG/4 ML INJECTABLE VIAL IVPUSH SCH (09:29)
[2019-03-19] MEDS: HEPARIN NA (PORCINE) 5,000 UNITS/ML 1ML VIAL SQ SCH ×2 (09:30→23:18)
[2019-03-19] MEDS: FAMOTIDINE 20 MG TABLET PO SCH (09:35)
[2019-03-19] MEDS: MULTIVITAMINS (DAILY MVI) TABLET (FP) PO SCH (09:35)
[2019-03-19] MEDS: FERROUS GLUCONATE 324 MG TAB (FP) PO SCH (09:35)
--- NOTE | 2019-03-19 14:13 | PN ---
Progress Note, Physician Chief Complaint: denies CP, SOB, palps History of Present Illness: CXR 03/18 mild improvement - Current Medication List Current Medications: Active Medications Acetaminophen (Tylenol -) 650 mg PO Q6H PRN PRN Reason: PAIN Albuterol/Ipratropium (Duoneb -) 1 amp NEB RTID [facility] Last Admin: 03/19/19 07:25 Dose: Not Given Diltiazem HCl (Cardizem Cd -) 180 mg PO DAILY [facility] Last Admin: 03/19/19 09:28 Dose: 180 mg Famotidine (Pepcid -) 20 mg PO DAILY [facility] Last Admin: 03/19/19 09:35 Dose: 20 mg Ferrous Gluconate (Fergon -) 324 mg PO DAILY [facility] Last Admin: 03/19/19 09:35 Dose: 324 mg Furosemide (Lasix Injection -) 20 mg IVPUSH DAILY [facility] Last Admin: 03/19/19 09:29 Dose: 20 mg Heparin Sodium (Porcine) (Heparin -) 5,000 unit SQ BID [facility] Last Admin: 03/19/19 09:30 Dose: 5,000 unit Lamotrigine (Lamictal -) 25 mg PO DAILY [facility] Last Admin: 03/19/19 09:28 Dose: 25 mg Levofloxacin (Levaquin -) 250 mg PO DAILY [facility] Last Admin: 03/19/19 09:28 Dose: 250 mg Levothyroxine Sodium (Synthroid -) 75 mcg PO ACBK [facility] Last Admin: 03/19/19 06:06 Dose: 75 mcg Multivitamins/Minerals/Vitamin C (Tab-A-Vit -) 1 tab PO DAILY [facility] Last Admin: 03/19/19 09:35 Dose: 1 tab Potassium Phos/Sodium Phos (Phos-Nak Packet -) 1 packet PO DAILY [facility] Last Admin: 03/19/19 09:28 Dose: 1 packet - Objective Vital Signs: Vital Signs Temperature 98.1 F 03/19/19 10:00 Pulse Rate 90 03/19/19 10:00 Respiratory Rate 18 03/19/19 10:00 Blood Pressure 115/65 03/19/19 10:00 O2 Sat by Pulse Oximetry (%) 98 03/19/19 09:00 Constitutional: Yes: No Distress Eyes: Yes: Conjunctiva Clear Cardiovascular: Yes: Regular Rate and Rhythm Respiratory: Yes: CTA Bilaterally Edema: No Labs: CBC, BMP 03/18/19 08:30 03/18/19 08:30 Assessment/Plan ecg: sr, nl intervals, no ischemic changes chest ct: mod bl effs a/p: 83 f hx dementia, htn, hypothyroid, sent from [facility] for seizures. pleural effs, chf: -pt with mod bl pleural effs -recent admit for pna, possibly related to infection vs chf/vol overload -cont lasix 20 iv qd and monitor daily chem7. check echo. htn: -cont dilt hypothyroid: -on synthroid, tsh wnl
[2019-03-20] MEDS: LEVOTHYROXINE NA 75 MCG TABLET (FP) PO SCH (06:15)
[2019-03-20] MEDS: ALBUTEROL SO4 2.5/IPRATROPIUM 0.5 INH SOL 3 ML VIAL.NEB. NEB SCH ×3 (08:06→20:49)
--- NOTE | 2019-03-20 08:28 | PN ---
Progress Note (short form) - Note Progress Note: Neurology Chief Complaint: Seizure - History of Present Illness Maria E Chahal is an 83F with PMH dementia, hypothyroidism, anemia, recent hospitalization for PNA, and known seizure disorder without medication for the last 4 weeks sent from [facility] for 2x seizures. Patient has baseline dementia and is alert but communicates in short phrases but does not meaningfully communicate other than saying that she is cold or hungry when asked how she is feeling.Called [facility] and spoke to medical staff services manager Ariadne, who reported that patient arrived 7 days prior of day of admission from [facility] where she was admitted for PND and IV Abx needing PICC, previously living with son Teo (#[phone]). On day of admission had 2 seizures, first at 11:15AM lasting ~60 seconds with shaking and facial twitching, resolved, then second seizures at 11:40AM. Per daughter at bedside during seizures, patient has known hx of seizures on medications, but paperwork does not indicate any seizure medications on medicine list, assumed that patient has not gotten seizure meds in a month since prior to hospitalization. Nursing denied any other symptoms prior, has been tolerating soft diet and performing rehab well. Daughter did not know when prior seizure was. Reportedly on Lamictal 25mg which is a low dose of the medication. Can remain on this dose for now unless recurrent events occur at which point would consider increasing to 50 mg. Remains on Levaquin for urinary tract infection which can be precipitant for seizure, afebrile and normal white count. Remains somnolent during my evaluations possibly more interactive during the daytime, remains on Levaquin. Active Medications Acetaminophen (Tylenol -) 650 mg PO Q6H PRN PRN Reason: PAIN Albuterol/Ipratropium (Duoneb -) 1 amp NEB RTID [facility] Last Admin: 03/20/19 08:06 Dose: Not Given Diltiazem HCl (Cardizem Cd -) 180 mg PO DAILY [facility] Last Admin: 03/19/19 09:28 Dose: 180 mg Famotidine (Pepcid -) 20 mg PO DAILY [facility] Last Admin: 03/19/19 09:35 Dose: 20 mg Ferrous Gluconate (Fergon -) 324 mg PO DAILY [facility] Last Admin: 03/19/19 09:35 Dose: 324 mg Furosemide (Lasix Injection -) 20 mg IVPUSH DAILY [facility] Last Admin: 03/19/19 09:29 Dose: 20 mg Heparin Sodium (Porcine) (Heparin -) 5,000 unit SQ BID [facility] Last Admin: 03/19/19 23:18 Dose: 5,000 unit Lamotrigine (Lamictal -) 25 mg PO DAILY [facility] Last Admin: 03/19/19 09:28 Dose: 25 mg Levofloxacin (Levaquin -) 250 mg PO DAILY [facility] Last Admin: 03/19/19 09:28 Dose: 250 mg Levothyroxine Sodium (Synthroid -) 75 mcg PO ACBK [facility] Last Admin: 03/20/19 06:15 Dose: 75 mcg Multivitamins/Minerals/Vitamin C (Tab-A-Vit -) 1 tab PO DAILY [facility] Last Admin: 03/19/19 09:35 Dose: 1 tab Potassium Phos/Sodium Phos (Phos-Nak Packet -) 1 packet PO DAILY [facility] Last Admin: 03/19/19 09:28 Dose: 1 packet *Physical Exam - Vital Signs Vital Signs Period Temp Pulse Resp BP Sys/Moss Pulse Ox Last 24 Hr 97.5 F-99.2 F 87-98 18-18 99-131/57-78 98-100 General Appearance: Yes: Nourished, Cachetic. No: Apparent Distress HEENT: positive: EOMI, KATHE, Normal Voice, Symmetrical. negative: Scleral Icterus (R), Scleral Icterus (L) Neck: positive: Trachea midline, Normal Thyroid. negative: Tender, Lymphadenopathy (R), Lymphadenopathy (L), Tender midline Respiratory/Chest: positive: Lungs Clear, Normal Breath Sounds. negative: Chest Tender, Respiratory Distress, Accessory Muscle Use, Crackles, Rhonchi, Stridor, Wheezing Cardiovascular: positive: Regular Rhythm, Regular Rate. negative: Murmur Gastrointestinal/Abdominal: positive: Normal Bowel Sounds, Flat, Soft. negative : Tender, Organomegaly, Pulsatile Mass, Guarding, Rebound Musculoskeletal: positive: Normal Inspection. negative: CVA Tenderness, Vertebral Tenderness Extremity: positive: Normal Capillary Refill, Normal Range of Motion, Pelvis Stable, Other (no bony deformities or tenderness). negative: Tender, Coldness Integumentary: positive: Normal Color, Dry, Warm, Erythema (L forearm, consistent with chemical dermatitis), Other (ulcer to R medial foot) Neurologic: positive: Alert, Confused, Disoriented CBCD WBC 9.3 K/mm3 (4.0-10.0) 03/18/19 08:30 RBC 3.09 M/mm3 (3.60-5.2) L 03/18/19 08:30 Hgb 9.5 GM/dL (10.7-15.3) L 03/18/19 08:30 Hct 27.9 % (32.4-45.2) L 03/18/19 08:30 MCV 90.5 fl (80-96) 03/18/19 08:30 MCHC 34.1 g/dl (32.0-36.0) 03/18/19 08:30 RDW 15.5 % (11.6-15.6) 03/18/19 08:30 Plt Count 462 K/MM3 (134-434) H 03/18/19 08:30 MPV 6.8 fl (7.5-11.1) L 03/18/19 08:30 CMP Sodium 141 mmol/L (136-145) 03/18/19 08:30 Potassium 3.7 mmol/L (3.5-5.1) 03/18/19 08:30 Chloride 104 mmol/L (98-107) 03/18/19 08:30 Carbon Dioxide 32 mmol/L (21-32) 03/18/19 08:30 Anion Gap 4 MMOL/L (8-16) L 03/18/19 08:30 BUN 11.4 mg/dL (7-18) 03/18/19 08:30 Creatinine 0.5 mg/dL (0.55-1.3) L 03/18/19 08:30 Random Glucose 79 mg/dL (74-106) 03/18/19 08:30 Calcium 7.6 mg/dL (8.5-10.1) L 03/18/19 08:30 Total Bilirubin 0.3 mg/dL (0.2-1) 03/18/19 08:30 AST 20 U/L (15-37) 03/18/19 08:30 ALT 18 U/L (13-61) 03/18/19 08:30 Alkaline Phosphatase 125 U/L (45-117) H 03/18/19 08:30 Total Protein 5.4 g/dl (6.4-8.2) L 03/18/19 08:30 Albumin 1.6 g/dl (3.4-5.0) L 03/18/19 08:30 PLAN: Maria E Chahal is an 83F with PMH dementia, hypothyroidism, anemia, recent hospitalization for PNA, and known seizure disorder without medication for the last 4 weeks sent from [facility] for 2x seizures. Patient has baseline dementia and is alert but communicates in short phrases but does not meaningfully communicate other than saying that she is cold or hungry when asked how she is feeling.Called [facility] and spoke to medical staff services manager Ariadne, who reported that patient arrived 7 days prior of day of admission from [facility] where she was admitted for PND and IV Abx needing PICC, previously living with son Teo (#[phone]). On day of admission had 2 seizures, first at 11:15AM lasting ~60 seconds with shaking and facial twitching, resolved, then second seizures at 11:40AM. Per daughter at bedside during seizures, patient has known hx of seizures on medications, but paperwork does not indicate any seizure medications on medicine list, assumed that patient has not gotten seizure meds in a month since prior to hospitalization. Nursing denied any other symptoms prior, has been tolerating soft diet and performing rehab well. Daughter did not know when prior seizure was. Lamictal restarted at 25 mg and can remain on this dose for now unless recurrent events occur at which point would consider increasing to 50 mg. Seizure free at this time. Remains on Levaquin for urinary tract infection which can be precipitant for seizure, afebrile and normal white count. Remains somnolent during my evaluations possibly more interactive during the daytime. Would medically optimize, Remains on Levaquin for urinary tract infection, afebrile and normal white count. Maintain adequate hydration, avoid sleep deprivation.
--- NOTE | 2019-03-20 08:47 | PN ---
Progress Note (short form) - Note Progress Note: Resting in NAD. Appears frail and weak. NAD. No acute events overnight. CT: chronic lung disease and pleural effusions Intake & Output 03/17/19 03/18/19 03/19/19 03/20/19 23:59 23:59 23:59 23:59 Intake Total 400 350 250 200 Balance 400 350 250 200 Weight 93 lb 9.6 oz 72 lb 70 lb 71 lb Last Vital Signs Temp Pulse Resp BP Pulse Ox 99.1 F 89 18 118/66 100 03/20/19 06:00 03/20/19 06:00 03/20/19 06:00 03/20/19 06:00 03/19/19 22:00 Active Medications Acetaminophen (Tylenol -) 650 mg PO Q6H PRN PRN Reason: PAIN Albuterol/Ipratropium (Duoneb -) 1 amp NEB RTID [facility] Last Admin: 03/20/19 08:06 Dose: Not Given Diltiazem HCl (Cardizem Cd -) 180 mg PO DAILY [facility] Last Admin: 03/19/19 09:28 Dose: 180 mg Famotidine (Pepcid -) 20 mg PO DAILY [facility] Last Admin: 03/19/19 09:35 Dose: 20 mg Ferrous Gluconate (Fergon -) 324 mg PO DAILY [facility] Last Admin: 03/19/19 09:35 Dose: 324 mg Furosemide (Lasix Injection -) 20 mg IVPUSH DAILY [facility] Last Admin: 03/19/19 09:29 Dose: 20 mg Heparin Sodium (Porcine) (Heparin -) 5,000 unit SQ BID [facility] Last Admin: 03/19/19 23:18 Dose: 5,000 unit Lamotrigine (Lamictal -) 25 mg PO DAILY [facility] Last Admin: 03/19/19 09:28 Dose: 25 mg Levofloxacin (Levaquin -) 250 mg PO DAILY [facility] Last Admin: 03/19/19 09:28 Dose: 250 mg Levothyroxine Sodium (Synthroid -) 75 mcg PO ACBK [facility] Last Admin: 03/20/19 06:15 Dose: 75 mcg Multivitamins/Minerals/Vitamin C (Tab-A-Vit -) 1 tab PO DAILY [facility] Last Admin: 03/19/19 09:35 Dose: 1 tab Potassium Phos/Sodium Phos (Phos-Nak Packet -) 1 packet PO DAILY [facility] Last Admin: 03/19/19 09:28 Dose: 1 packet Gen: NAD at rest Heart: RRR Lung: decreased breath sounds at the bases Abd: soft, nontender Ext: no edema Laboratory Results - last 24 hr 03/17/19 07:45 Sodium 142 Potassium 3.5 Chloride 106 Carbon Dioxide 31 Anion Gap 4 L BUN 13.0 Creatinine 0.4 L Est GFR (CKD-EPI)AfAm 110.85 Est GFR (CKD-EPI)NonAf 95.65 Random Glucose 76 Calcium 8.1 L Iron 25 L Ferritin 406.4 H Total Bilirubin 0.1 L AST 18 ALT 16 Alkaline Phosphatase 119 H LD Total 183 C-Reactive Protein 5.3 H Total Protein 5.2 L Albumin 1.6 L Vitamin B12 785 Serum Folate 5 TSH 1.80 Problem List - Problems (1) Pleural effusion Code(s): J90 - PLEURAL EFFUSION, NOT ELSEWHERE CLASSIFIED A/P Bilateral Pleural Effusions Suspect Acute on Chronic Diastolic Heart Failure Recent Pneumonia HTN Hypothyroidism Dementia - Lasix - monitor urine output, creatinine - Low threshold to stop antibiotics - f/u cultures - O2 to keep SpO2 >90% - aspiration precautions - DVT prophylaxis Dr Vigil
[2019-03-20 09:01] LABS: BASO % 0.1 % (0-2.0); EOS % 0.4 % (0-4.5); HEMATOCRIT 27.4 % (32.4-45.2); HEMOGLOBIN 9.3 GM/dL (10.7-15.3); LYMPH % 9.6 % (8-40); MCH 30.8 pg (25.7-33.7); MEAN CELL VOLUME 90.7 fl (80-96); MEAN PLT VOLUME 6.7 fl (7.5-11.1); MONO % 6.9 % (3.8-10.2); PLATELET COUNT 400 K/MM3 (134-434); RBC 3.02 M/mm3 (3.60-5.2); RDW 15.1 % (11.6-15.6); WHITE BLOOD COUNT 8.4 K/mm3 (4.0-10.0)
--- NOTE | 2019-03-20 09:36 | PN ---
Progress Note, Physician Chief Complaint: in bed NAD still awaiting echo kitchen manager consult placed, pending - Current Medication List Current Medications: Active Medications Acetaminophen (Tylenol -) 650 mg PO Q6H PRN PRN Reason: PAIN Albuterol/Ipratropium (Duoneb -) 1 amp NEB RTID [facility] Last Admin: 03/20/19 08:06 Dose: Not Given Diltiazem HCl (Cardizem Cd -) 180 mg PO DAILY [facility] Last Admin: 03/19/19 09:28 Dose: 180 mg Famotidine (Pepcid -) 20 mg PO DAILY [facility] Last Admin: 03/19/19 09:35 Dose: 20 mg Ferrous Gluconate (Fergon -) 324 mg PO DAILY [facility] Last Admin: 03/19/19 09:35 Dose: 324 mg Furosemide (Lasix Injection -) 20 mg IVPUSH DAILY [facility] Last Admin: 03/19/19 09:29 Dose: 20 mg Heparin Sodium (Porcine) (Heparin -) 5,000 unit SQ BID [facility] Last Admin: 03/19/19 23:18 Dose: 5,000 unit Lamotrigine (Lamictal -) 25 mg PO DAILY [facility] Last Admin: 03/19/19 09:28 Dose: 25 mg Levofloxacin (Levaquin -) 250 mg PO DAILY [facility] Last Admin: 03/19/19 09:28 Dose: 250 mg Levothyroxine Sodium (Synthroid -) 75 mcg PO ACBK [facility] Last Admin: 03/20/19 06:15 Dose: 75 mcg Multivitamins/Minerals/Vitamin C (Tab-A-Vit -) 1 tab PO DAILY [facility] Last Admin: 03/19/19 09:35 Dose: 1 tab Potassium Phos/Sodium Phos (Phos-Nak Packet -) 1 packet PO DAILY [facility] Last Admin: 03/19/19 09:28 Dose: 1 packet - Objective Vital Signs: Vital Signs Temperature 99.1 F 03/20/19 06:00 Pulse Rate 89 03/20/19 06:00 Respiratory Rate 18 03/20/19 06:00 Blood Pressure 118/66 03/20/19 06:00 O2 Sat by Pulse Oximetry (%) 100 03/19/19 22:00 Constitutional: Yes: No Distress HENT: Yes: Atraumatic Neck: Yes: Supple Cardiovascular: Yes: Regular Rate and Rhythm Respiratory: Yes: Diminished Gastrointestinal: Yes: Soft. No: Tenderness Genitourinary: No: Hematuria Extremities: No: Cold, Cool Edema: No Integumentary: No: Rash Neurological: Yes: Other (sleeping but arousable). No: Alert Psychiatric: No: Alert Labs: CBC, BMP 03/20/19 07:47 - ....Imaging Other: Report Reviewed Assessment/Plan Maria E Chahal is an 83F with PMH dementia, hypothyroidism, anemia, recent hospitalization for PNA and pancreatitis, and known seizure disorder admitted for seizures. Found to have pleural effusions and anemia. neurology f/u; pleural effusions: cardiology and pulmonary eval; check echo still pending d.w staff anemia - get old records - from daughter UTI PSeudomonas Po levaquin 250 mg/d - ZYGLO TECHNICIAN eval (here or outpt) for pessary aspiration PFX, thickened fluids, purree diet; d/w staff
[2019-03-20 10:01] LABS: ALBUMIN 1.6 g/dl (3.4-5.0); BILIRUBIN,TOTAL 0.3 mg/dL (0.2-1); BLOOD UREA NITROGEN 7.2 mg/dL (7-18); CALCIUM 8.2 mg/dL (8.5-10.1); CREATININE 0.5 mg/dL (0.55-1.3); POTASSIUM 3.9 mmol/L (3.5-5.1); TOT PROT 5.6 g/dl (6.4-8.2)
[2019-03-20] MEDS ORDERED: PT OWN MED DRAWER 7, Y5N ONE ×2 (11:26→18:25)
[2019-03-20] MEDS: MULTIVITAMINS (DAILY MVI) TABLET (FP) PO SCH (11:30)
[2019-03-20] MEDS: FUROSEMIDE 40 MG/4 ML INJECTABLE VIAL IVPUSH SCH (11:30)
[2019-03-20] MEDS: FERROUS GLUCONATE 324 MG TAB (FP) PO SCH (11:31)
[2019-03-20] MEDS: HEPARIN NA (PORCINE) 5,000 UNITS/ML 1ML VIAL SQ SCH ×2 (11:31→22:53)
[2019-03-20] MEDS: FAMOTIDINE 20 MG TABLET PO SCH (11:31)
[2019-03-20] MEDS: lamoTRIgine 25 MG TABLET PO SCH (11:32)
[2019-03-20] MEDS: NAPH,MB-DB/K PH,MBDB POWDER PACKET PO SCH (11:32)
--- NOTE | 2019-03-20 13:49 | ECHO ---
Name: ADALID DRUMMOND Exam:Adult Echocardiogram Study Date: 03/20/2019 09:51 AM Age: 83 yrs Height: 60 in Weight: 76 lb BSA: 1.2 m2 MMode/2D Measurements & Calculations IVSd: 0.76 cm Ao root diam: 2.2 cm LVIDd: 3.5 cm LA dimension: 2.2 cm LVIDs: 2.5 cm LVPWd: 0.99 cm LVPWs: 1.1 cm EDV(Teich): 52.3 ml ESV(Teich): 21.7 ml LVOT diam: 1.8 cm LAV (MOD-bp): 37.0 ml RV S Te: 13.9 cm/sec Doppler Measurements & Calculations MV E max te: 66.1 cm/sec Ao V2 max: 130.9 cm/sec MV A max te: 89.3 cm/sec Ao max P.1 mmHg MV E/A: 0.74 AI P1/2t: 585.5 msec MV dec time: 0.17 sec MARIA GUADALUPE(V,D): 2.2 cm2 AI max te: 298.6 cm/sec LV V1 max P.8 mmHg AI max P.7 mmHg LV V1 max: 109.1 cm/sec AI dec slope: 149.4 cm/sec2 MR max te: 513.6 cm/sec PA V2 max: 88.2 cm/sec MR max P.6 mmHg PA max P.1 mmHg Med Peak E' Te: 5.9 cm/sec Med E/e': 11.2 Lat Peak E' Te: 5.4 cm/sec Lat E/e': 12.3 Procedure A two-dimensional transthoracic echocardiogram with color flow and Doppler was performed. The study w as technically difficult with many images being suboptimal in quality. Left Ventricle The left ventricular size, thickness and function are normal. The left ventricle is not well visualiz ed. The left ventricular ejection fraction is normal. Regional wall motion abnormalities cannot be excluded d ue to limited visualization. Right Ventricle The right ventricle is not well visualized. Atria Normal left and right atrial size and function. Mitral Valve There is trivial mitral valve thickening. There is no mitral valve stenosis. There is mild to moderat e mitral regurgitation. Tricuspid Valve The tricuspid valve is not well visualized. There is no tricuspid stenosis. There was insufficient TR detected to calculate RV systolic pressure. Aortic Valve There is mild to moderate aortic valve thickening. The aortic valve is not well visualized. No hemody namically significant valvular aortic stenosis. Moderate aortic regurgitation. Pulmonic Valve The pulmonic valve is not well visualized. Great Vessels The aortic root is normal size. Pericardium/Pleura There is no pericardial effusion. Interpretation Summary The left ventricular size, thickness and function are normal Moderate aortic regurgitation. There is mild to moderate aortic valve thickening. The left ventricular ejection fraction is normal. There is mild to moderate mitral regurgitation. The study was technically difficult with many images being suboptimal in quality. The left ventricle is not well visualized. The right ventricle is not well visualized. There was insufficient TR detected to calculate RV systolic pressure. MD Santhosh Cadena 03/20/2019 01:49 PM
--- NOTE | 2019-03-20 14:06 | PN ---
Progress Note (short form) - Note Progress Note: s: no cp sob palps dizzy Current Medications Generic Name Dose Route Start Last Admin Trade Name Freq PRN Reason Stop Dose Admin Acetaminophen 650 mg 03/16/19 12:34 Tylenol - PO Q6H PRN PAIN Albuterol/Ipratropium 1 amp 03/17/19 14:00 03/20/19 08:06 Duoneb - NEB Not Given RTID SWAPNA Diltiazem HCl 180 mg 03/16/19 10:00 03/20/19 11:49 Cardizem Cd - PO Not Given DAILY SWAPNA Famotidine 20 mg 03/16/19 16:00 03/20/19 11:31 Pepcid - PO 20 mg DAILY SWAPNA Administration Ferrous Gluconate 324 mg 03/16/19 10:00 03/20/19 11:31 Fergon - PO 324 mg DAILY SWAPNA Administration Furosemide 20 mg 03/16/19 13:15 03/20/19 11:30 Lasix Injection - IVPUSH 20 mg DAILY SWAPNA Administration Heparin Sodium (Porcine) 5,000 unit 03/16/19 22:00 03/20/19 11:31 Heparin - SQ 5,000 unit BID SWAPNA Administration Lamotrigine 25 mg 03/16/19 10:00 03/20/19 11:32 Lamictal - PO 25 mg DAILY SWAPNA Administration Levofloxacin 250 mg 03/18/19 11:00 03/20/19 11:30 Levaquin - PO 250 mg DAILY SWAP[facility] Administration Levothyroxine Sodium 75 mcg 03/16/19 07:00 03/20/19 06:15 Synthroid - PO 75 mcg ACBK SWAPNA Administration Multivitamins/Minerals/Vitamin C 1 tab 03/17/19 10:00 03/20/19 11:30 Tab-A-Vit - PO 1 tab DAILY SWAPNA Administration Potassium Phos/Sodium Phos 1 packet 03/16/19 10:00 03/20/19 11:32 Phos-Nak Packet - PO 1 packet DAILY SWAPNA Administration Vital Signs Period Temp Pulse Resp BP Sys/Moss Pulse Ox Last 24 Hr 97.9 F-99.2 F 89-101 18-20 109-131/52-78 100-100 nad no jvd rrr s1s2 no mrg dec bs bases bl, poor eff awake, confused no jaundice diaphoresis pos dp pt no carotid bruits abd nt nd pos bs no le e/c/c CBC, BMP 03/20/19 07:47 03/20/19 07:47 ecg: sr, nl intervals, no ischemic changes chest ct: mod bl effs a/p: 83 f hx dementia, htn, hypothyroid, sent from [facility] for [facility]. pleural effs, chf: -pt with mod bl pleural effs -recent admit for pna, possibly related to infection vs chf/vol overload -has been getting lasix 20 iv qd with some improvement in effusions, can likely change to po lasix tomorrow -echo here with nl lvef, no severe valve dz htn: -cont dilt hypothyroid: -on synthroid, tsh wnl
[2019-03-20] MEDS: dilTIAZem HCL 30 MG TABLET (FP) PO SCH ×2 (18:32→22:52)
[2019-03-21] MEDS: LEVOTHYROXINE NA 75 MCG TABLET (FP) PO SCH (06:38)
[2019-03-21] MEDS: ALBUTEROL SO4 2.5/IPRATROPIUM 0.5 INH SOL 3 ML VIAL.NEB. NEB SCH ×3 (07:30→20:30)
--- NOTE | 2019-03-21 07:33 | DS ---
Physical Examination Vital Signs: Vital Signs Temperature 98.8 F 03/21/19 06:00 Pulse Rate 107 H 03/21/19 06:00 Respiratory Rate 03/21/19 06:00 Blood Pressure 143/71 03/21/19 06:00 O2 Sat by Pulse Oximetry (%) 98 03/20/19 21:00 Findings/Remarks: awake alert eating breakfast NAD VSS No c/o remove Picc line, switch to po meds DC to NH dw CM and daughter Constitutional: Yes: No Distress, Calm Eyes: Yes: Conjunctiva Clear HENT: Yes: Atraumatic Neck: Yes: Supple Cardiovascular: Yes: Regular Rate and Rhythm Respiratory: Yes: Diminished Gastrointestinal: Yes: Soft. No: Tenderness Renal/: No: Hematuria Musculoskeletal: No: Joint Stiffness, Joint Swelling Extremities: No: Cold, Cool, Cyanosis Edema: No Integumentary: Yes: Pressure Ulcer (sacral stage 2; R hip rash b/o diapers contact). No: Rash Neurological: Yes: Alert ...Motor Strength: WNL Psychiatric: Yes: Alert. No: Agitated, Suicidal Ideation Labs: CBC, BMP 03/20/19 07:47 03/20/19 07:47 Discharge Summary Problems reviewed: Yes Reason For Visit: PLEURAL EFFUSION Current Active Problems Dementia (Acute) Heart failure (Acute) Hypertension (Acute) Hypothyroid (Acute) Pleural effusion (Acute) Seizure (Acute) Procedures: Principal: 83 YOF ASHD CHF Diastolic dysfct HTN seizures pleural effusions admitted with seizures and pleural effusions Other Procedures: seen by neurology - on meds per neuro;. seen by cardiology and pulmonary; echo NL EF distolic dysft; on po lasix effusions better. Hospital Course: improved with above; DIANA per daughter old (had w/u previously, to get old records); also found with UTI on po levaquin x 5 days; per daughter has pessary - [employer] eval outpt; sacral stage 2, topical silvadene, turn in bed fequently; R hip rash sec to diaper contact, loosen diapers, topical silvadene / steroid cream; aspiration PFX; close f/u; dw pt's daughter Annamaria all the above Condition: Stable - Instructions Diet, Activity, Other Instructions: f/u PCP in NH; [employer] eval outpt; decubs prophylaxis; aspiration prophylaxis; labs and CXRE f/u in 1-2 weeks; Referrals: Alfredo Shah MD [Primary Care Provider] - Disposition: CARE HOME FACILITY - Home Medications Comprehensive Discharge Medication List: Ambulatory Orders Aa/Hydrolyzed Collagen, Whey [Lps 15-30 Liquid] 30 ml PO DAILY 03/15/19 Acetaminophen [Tylenol] 650 mg PO QID PRN 03/15/19 Ascorbate Calcium [Vitamin C] 500 mg PO DAILY 03/15/19 Diltiazem Cd [Cardizem Cd -] 180 mg PO DAILY 03/15/19 Famotidine 20 mg PO DAILY 03/15/19 Ferrous Gluconate [Fergon -] 324 mg PO DAILY 03/15/19 Honey [Medihoney] 15 ml TP DAILY 03/15/19 Lamotrigine [Lamictal] 25 mg PO DAILY 03/15/19 Levothyroxine [Synthroid -] 75 mcg PO DAILY 03/15/19 Multivitamin [One-Daily Multi-Vitamin] 1 each PO DAILY 03/15/19 Nutritional Supplement [Hi-Asif] 120 ml PO BID 03/15/19 Pantoprazole Sodium [Protonix] 40 mg PO DAILY 03/15/19 Sodium,Potassium Phosphates [Phos-Nak Packet] 1 each PO DAILY 03/15/19 Zinc Oxide 20% Topical Oint 454 gm NR BID 03/15/19 Zinc Sulfate [Zinc-220] 220 mg PO DAILY 03/15/19
--- NOTE | 2019-03-21 08:46 | PN ---
Progress Note (short form) - Note Progress Note: Neurology Chief Complaint: Seizure - History of Present Illness Maria E Chahal is an 83F with PMH dementia, hypothyroidism, anemia, recent hospitalization for PNA, and known seizure disorder without medication for the last 4 weeks sent from [facility] for 2x seizures. Patient has baseline dementia and is alert but communicates in short phrases but does not meaningfully communicate other than saying that she is cold or hungry when asked how she is feeling.Called [facility] and spoke to manager roofing Ariadne, who reported that patient arrived 7 days prior of day of admission from [facility] where she was admitted for PND and IV Abx needing PICC, previously living with son Teo (#[phone]). On day of admission had 2 seizures, first at 11:15AM lasting ~60 seconds with shaking and facial twitching, resolved, then second seizures at 11:40AM. Per daughter at bedside during seizures, patient has known hx of seizures on medications, but paperwork does not indicate any seizure medications on medicine list, assumed that patient has not gotten seizure meds in a month since prior to hospitalization. Nursing denied any other symptoms prior, has been tolerating soft diet and performing rehab well. Daughter did not know when prior seizure was. Reportedly on Lamictal 25mg which is a low dose of the medication. Can remain on this dose for now unless recurrent events occur at which point would consider increasing to 50 mg. Remains on Levaquin for urinary tract infection which can be precipitant for seizure, afebrile and normal white count. More awake and alert this morning, possibly for discharge. No seizure-like events and neurologically stable at this time Active Medications Acetaminophen (Tylenol -) 650 mg PO Q6H PRN PRN Reason: PAIN Albuterol/Ipratropium (Duoneb -) 1 amp NEB RTID [facility] Last Admin: 03/20/19 20:49 Dose: 1 amp Diltiazem HCl (Cardizem Cd -) 120 mg PO DAILY [facility] Famotidine (Pepcid -) 20 mg PO DAILY [facility] Last Admin: 03/20/19 11:31 Dose: 20 mg Ferrous Gluconate (Fergon -) 324 mg PO DAILY [facility] Last Admin: 03/20/19 11:31 Dose: 324 mg Furosemide (Lasix -) 20 mg PO DAILY [facility] Heparin Sodium (Porcine) (Heparin -) 5,000 unit SQ BID [facility] Last Admin: 03/20/19 22:53 Dose: 5,000 unit Lamotrigine (Lamictal -) 25 mg PO DAILY [facility] Last Admin: 03/20/19 11:32 Dose: 25 mg Levofloxacin (Levaquin -) 250 mg PO DAILY [facility] Last Admin: 03/20/19 11:30 Dose: 250 mg Levothyroxine Sodium (Synthroid -) 75 mcg PO ACBK [facility] Last Admin: 03/21/19 06:38 Dose: 75 mcg Multivitamins/Minerals/Vitamin C (Tab-A-Vit -) 1 tab PO DAILY [facility] Last Admin: 03/20/19 11:30 Dose: 1 tab Potassium Phos/Sodium Phos (Phos-Nak Packet -) 1 packet PO DAILY [facility] Last Admin: 03/20/19 11:32 Dose: 1 packet *Physical Exam - Vital Signs Vital Signs Period Temp Pulse Resp BP Sys/Moss Pulse Ox Last 24 Hr 98.3 F-99.3 F 93-107 20-20 103-160/51-82 98-100 General Appearance: Yes: Nourished, Cachetic. No: Apparent Distress HEENT: positive: EOMI, KATHE, Normal Voice, Symmetrical. negative: Scleral Icterus (R), Scleral Icterus (L) Neck: positive: Trachea midline, Normal Thyroid. negative: Tender, Lymphadenopathy (R), Lymphadenopathy (L), Tender midline Respiratory/Chest: positive: Lungs Clear, Normal Breath Sounds. negative: Chest Tender, Respiratory Distress, Accessory Muscle Use, Crackles, Rhonchi, Stridor, Wheezing Cardiovascular: positive: Regular Rhythm, Regular Rate. negative: Murmur Gastrointestinal/Abdominal: positive: Normal Bowel Sounds, Flat, Soft. negative : Tender, Organomegaly, Pulsatile Mass, Guarding, Rebound Musculoskeletal: positive: Normal Inspection. negative: CVA Tenderness, Vertebral Tenderness Extremity: positive: Normal Capillary Refill, Normal Range of Motion, Pelvis Stable, Other (no bony deformities or tenderness). negative: Tender, Coldness Integumentary: positive: Normal Color, Dry, Warm, Erythema (L forearm, consistent with chemical dermatitis), Other (ulcer to R medial foot) Neurologic: positive: Alert, Confused, Disoriented CBCD WBC 8.4 K/mm3 (4.0-10.0) 03/20/19 07:47 RBC 3.02 M/mm3 (3.60-5.2) L 03/20/19 07:47 Hgb 9.3 GM/dL (10.7-15.3) L 03/20/19 07:47 Hct 27.4 % (32.4-45.2) L 03/20/19 07:47 MCV 90.7 fl (80-96) 03/20/19 07:47 MCHC 34.0 g/dl (32.0-36.0) 03/20/19 07:47 RDW 15.1 % (11.6-15.6) 03/20/19 07:47 Plt Count 400 K/MM3 (134-434) 03/20/19 07:47 MPV 6.7 fl (7.5-11.1) L 03/20/19 07:47 CMP Sodium 142 mmol/L (136-145) 03/20/19 07:47 Potassium 3.9 mmol/L (3.5-5.1) 03/20/19 07:47 Chloride 104 mmol/L (98-107) 03/20/19 07:47 Carbon Dioxide 34 mmol/L (21-32) H 03/20/19 07:47 Anion Gap 5 MMOL/L (8-16) L 03/20/19 07:47 BUN 7.2 mg/dL (7-18) 03/20/19 07:47 Creatinine 0.5 mg/dL (0.55-1.3) L 03/20/19 07:47 Random Glucose 71 mg/dL (74-106) L 03/20/19 07:47 Calcium 8.2 mg/dL (8.5-10.1) L 03/20/19 07:47 Total Bilirubin 0.3 mg/dL (0.2-1) 03/20/19 07:47 AST 17 U/L (15-37) 03/20/19 07:47 ALT 16 U/L (13-61) 03/20/19 07:47 Alkaline Phosphatase 132 U/L (45-117) H 03/20/19 07:47 Total Protein 5.6 g/dl (6.4-8.2) L 03/20/19 07:47 Albumin 1.6 g/dl (3.4-5.0) L 03/20/19 07:47 PLAN: Maria E Chahal is an 83F with PMH dementia, hypothyroidism, anemia, recent hospitalization for PNA, and known seizure disorder without medication for the last 4 weeks sent from [facility] for 2x seizures. Patient has baseline dementia and is alert but communicates in short phrases but does not meaningfully communicate other than saying that she is cold or hungry when asked how she is feeling.Called [facility] and spoke to manager roofing Ariadne, who reported that patient arrived 7 days prior of day of admission from [facility] where she was admitted for PND and IV Abx needing PICC, previously living with son Teo (#[phone]). On day of admission had 2 seizures, first at 11:15AM lasting ~60 seconds with shaking and facial twitching, resolved, then second seizures at 11:40AM. Per daughter at bedside during seizures, patient has known hx of seizures on medications, but paperwork does not indicate any seizure medications on medicine list, assumed that patient has not gotten seizure meds in a month since prior to hospitalization. Nursing denied any other symptoms prior, has been tolerating soft diet and performing rehab well. Daughter did not know when prior seizure was. Lamictal restarted at 25 mg and can remain on this dose for now unless recurrent events occur at which point would consider increasing to 50 mg. Seizure free at this time. Remains on Levaquin for urinary tract infection which can be precipitant for seizure, afebrile and normal white count. More awake and alert this morning, possibly for discharge. No seizure-like events and neurologically stable at this time
[2019-03-21] MEDS ORDERED: PT OWN MED DRAWER 7, Y5N ONE (10:29)
--- NOTE | 2019-03-21 10:30 | PN ---
Progress Note (short form) - Note Progress Note: Resting in NAD. Appears frail and weak. NAD. No acute events overnight. Intake & Output 03/18/19 03/19/19 03/20/19 03/21/19 23:59 23:59 23:59 23:59 Intake Total 350 250 540 120 Balance 350 250 540 120 Weight 72 lb 70 lb 71 lb 69 lb Last Vital Signs Temp Pulse Resp BP Pulse Ox 98.8 F 107 H 20 143/71 98 03/21/19 06:00 03/21/19 06:00 03/21/19 06:00 03/21/19 06:00 03/20/19 21:00 Active Medications Acetaminophen (Tylenol -) 650 mg PO Q6H PRN PRN Reason: PAIN Albuterol/Ipratropium (Duoneb -) 1 amp NEB RTID [facility] Last Admin: 03/21/19 07:30 Dose: 1 amp Diltiazem HCl (Cardizem -) 30 mg PO Q6HPO [facility] Famotidine (Pepcid -) 20 mg PO DAILY [facility] Last Admin: 03/20/19 11:31 Dose: 20 mg Ferrous Gluconate (Fergon -) 324 mg PO DAILY [facility] Last Admin: 03/20/19 11:31 Dose: 324 mg Furosemide (Lasix -) 20 mg PO DAILY [facility] Heparin Sodium (Porcine) (Heparin -) 5,000 unit SQ BID [facility] Last Admin: 03/20/19 22:53 Dose: 5,000 unit Lamotrigine (Lamictal -) 25 mg PO DAILY [facility] Last Admin: 03/20/19 11:32 Dose: 25 mg Levofloxacin (Levaquin -) 250 mg PO DAILY [facility] Last Admin: 03/20/19 11:30 Dose: 250 mg Levothyroxine Sodium (Synthroid -) 75 mcg PO ACBK [facility] Last Admin: 03/21/19 06:38 Dose: 75 mcg Multivitamins/Minerals/Vitamin C (Tab-A-Vit -) 1 tab PO DAILY [facility] Last Admin: 03/20/19 11:30 Dose: 1 tab Potassium Phos/Sodium Phos (Phos-Nak Packet -) 1 packet PO DAILY [facility] Last Admin: 03/20/19 11:32 Dose: 1 packet Gen: NAD at rest Heart: RRR Lung: decreased breath sounds at the bases Abd: soft, nontender Ext: no edema Problem List - Problems (1) Pleural effusion Code(s): J90 - PLEURAL EFFUSION, NOT ELSEWHERE CLASSIFIED A/P Bilateral Pleural Effusions Suspect Acute on Chronic Diastolic Heart Failure Recent Pneumonia HTN Hypothyroidism Dementia - Lasix - O2 to keep SpO2 >90% - aspiration precautions - DVT prophylaxis - DC planning Dr Vigil
[2019-03-21] MEDS: MULTIVITAMINS (DAILY MVI) TABLET (FP) PO SCH (10:37)
[2019-03-21] MEDS: HEPARIN NA (PORCINE) 5,000 UNITS/ML 1ML VIAL SQ SCH ×2 (10:38→23:55)
[2019-03-21] MEDS: NAPH,MB-DB/K PH,MBDB POWDER PACKET PO SCH (10:38)
[2019-03-21] MEDS: FUROSEMIDE 20 MG TABLET (FP) PO SCH (10:38)
[2019-03-21] MEDS: FERROUS GLUCONATE 324 MG TAB (FP) PO SCH (10:40)
[2019-03-21] MEDS: lamoTRIgine 25 MG TABLET PO SCH (10:40)
[2019-03-21] MEDS: FAMOTIDINE 20 MG TABLET PO SCH (10:41)
[2019-03-21] MEDS: dilTIAZem HCL 30 MG TABLET (FP) PO SCH ×2 (11:58→18:33)
--- NOTE | 2019-03-21 15:56 | PN ---
Progress Note (short form) - Note Progress Note: s: no cp sob palps dizzy Current Medications Acetaminophen (Tylenol -) 650 mg PO Q6H PRN PRN Reason: PAIN Albuterol/Ipratropium (Duoneb -) 1 amp NEB RTID [facility] Last Admin: 03/21/19 14:15 Dose: 1 amp Diltiazem HCl (Cardizem -) 30 mg PO Q6HPO [facility] Last Admin: 03/21/19 11:58 Dose: 30 mg Famotidine (Pepcid -) 20 mg PO DAILY [facility] Last Admin: 03/21/19 10:41 Dose: 20 mg Ferrous Gluconate (Fergon -) 324 mg PO DAILY [facility] Last Admin: 03/21/19 10:40 Dose: 324 mg Furosemide (Lasix -) 20 mg PO DAILY [facility] Last Admin: 03/21/19 10:38 Dose: 20 mg Heparin Sodium (Porcine) (Heparin -) 5,000 unit SQ BID [facility] Last Admin: 03/21/19 10:38 Dose: 5,000 unit Lamotrigine (Lamictal -) 25 mg PO DAILY [facility] Last Admin: 03/21/19 10:40 Dose: 25 mg Levofloxacin (Levaquin -) 250 mg PO DAILY [facility] Last Admin: 03/21/19 10:38 Dose: 250 mg Levothyroxine Sodium (Synthroid -) 75 mcg PO ACBK [facility] Last Admin: 03/21/19 06:38 Dose: 75 mcg Multivitamins/Minerals/Vitamin C (Tab-A-Vit -) 1 tab PO DAILY [facility] Last Admin: 03/21/19 10:37 Dose: 1 tab Potassium Phos/Sodium Phos (Phos-Nak Packet -) 1 packet PO DAILY [facility] Last Admin: 03/21/19 10:38 Dose: 1 packet Vital Signs Period Temp Pulse Resp BP Sys/Moss Pulse Ox Last 24 Hr 97 F-99.3 F 93-107 20-20 118-160/60-82 97-98 nad no jvd rrr s1s2 no mrg dec bs bases bl, poor eff awake, confused no jaundice diaphoresis pos dp pt no carotid bruits abd nt nd pos bs no le e/c/c ecg: sr, nl intervals, no ischemic changes chest ct: mod bl effs a/p: 83 f hx dementia, htn, hypothyroid, sent [place]. pleural effs, chf: -pt with mod bl pleural effs -recent admit for pna, possibly related to infection vs chf/vol overload -has been getting lasix 20 iv qd with some improvement in effusions, no on PO lasix, continue -echo here with nl lvef, no severe valve dz htn: -cont dilt hypothyroid: -on synthroid, tsh wnl
[2019-03-21 19:07] LABS: EPI CELLS >36 /HPF (0-5/HPF); HYALINE CASTS 9 /lpf (0-8); URINE APPEARANCE CLOUDY; URINE BACTERIA 13.1 /hpf (NEGATIVE); URINE BILIRUBIN NEGATIVE (NEGATIVE); URINE COLOR YELLOW; URINE GLUCOSE (UA) NEGATIVE (NEGATIVE); URINE KETONE NEGATIVE (NEGATIVE); URINE LEUK ESTERASE 3+ (NEGATIVE); URINE NITRITE NEGATIVE (NEGATIVE); URINE PROTEIN NEGATIVE (NEGATIVE); URINE RBC 1 /hpf (0-4); URINE UROBILINOGEN 0.2 mg/dL (0.2-1.0); URINE WBC 39 /hpf (0-5)
[2019-03-22] MEDS: dilTIAZem HCL 30 MG TABLET (FP) PO SCH ×3 (06:53→13:05)
[2019-03-22] MEDS: LEVOTHYROXINE NA 75 MCG TABLET (FP) PO SCH (06:54)
[2019-03-22] MEDS: ALBUTEROL SO4 2.5/IPRATROPIUM 0.5 INH SOL 3 ML VIAL.NEB. NEB SCH ×2 (07:30→14:33)
--- NOTE | 2019-03-22 08:33 | PN ---
Progress Note (short form) - Note Progress Note: Neurology Chief Complaint: Seizure - History of Present Illness Maria E Chahal is an 83F with PMH dementia, hypothyroidism, anemia, recent hospitalization for PNA, and known seizure disorder without medication for the last 4 weeks sent from [facility] for 2x seizures. Patient has baseline dementia and is alert but communicates in short phrases but does not meaningfully communicate other than saying that she is cold or hungry when asked how she is feeling.Called [facility] and spoke to hvac service manager Ariadne, who reported that patient arrived 7 days prior of day of admission from [facility] where she was admitted for PND and IV Abx needing PICC, previously living with son Teo (#[phone]). On day of admission had 2 seizures, first at 11:15AM lasting ~60 seconds with shaking and facial twitching, resolved, then second seizures at 11:40AM. Per daughter at bedside during seizures, patient has known hx of seizures on medications, but paperwork does not indicate any seizure medications on medicine list, assumed that patient has not gotten seizure meds in a month since prior to hospitalization. Nursing denied any other symptoms prior, has been tolerating soft diet and performing rehab well. Daughter did not know when prior seizure was. Reportedly on Lamictal 25mg which is a low dose of the medication. Can remain on this dose for now unless recurrent events occur at which point would consider increasing to 50 mg. Remains on Levaquin for urinary tract infection which can be precipitant for seizure, was planned for discharge yesterday but according to the nurse this was delayed due to temp of 100 Patient may be considered for discharge today. Active Medications Acetaminophen (Tylenol -) 650 mg PO Q6H PRN PRN Reason: PAIN Albuterol/Ipratropium (Duoneb -) 1 amp NEB RTID [facility] Last Admin: 03/22/19 07:30 Dose: 1 amp Diltiazem HCl (Cardizem -) 30 mg PO Q6HPO [facility] Last Admin: 03/22/19 06:53 Dose: 30 mg Famotidine (Pepcid -) 20 mg PO DAILY [facility] Last Admin: 03/21/19 10:41 Dose: 20 mg Ferrous Gluconate (Fergon -) 324 mg PO DAILY [facility] Last Admin: 03/21/19 10:40 Dose: 324 mg Furosemide (Lasix -) 20 mg PO DAILY [facility] Last Admin: 03/21/19 10:38 Dose: 20 mg Heparin Sodium (Porcine) (Heparin -) 5,000 unit SQ BID [facility] Last Admin: 03/21/19 23:55 Dose: 5,000 unit Lamotrigine (Lamictal -) 25 mg PO DAILY [facility] Last Admin: 03/21/19 10:40 Dose: 25 mg Levofloxacin (Levaquin -) 250 mg PO DAILY [facility] Last Admin: 03/21/19 10:38 Dose: 250 mg Levothyroxine Sodium (Synthroid -) 75 mcg PO ACBK [facility] Last Admin: 03/22/19 06:54 Dose: 75 mcg Multivitamins/Minerals/Vitamin C (Tab-A-Vit -) 1 tab PO DAILY [facility] Last Admin: 03/21/19 10:37 Dose: 1 tab Potassium Phos/Sodium Phos (Phos-Nak Packet -) 1 packet PO DAILY [facility] Last Admin: 03/21/19 10:38 Dose: 1 packet *Physical Exam - Vital Signs Vital Signs Period Temp Pulse Resp BP Sys/Moss Pulse Ox Last 24 Hr 97 F-100 F 85-111 20-20 104-146/53-82 97-97 General Appearance: Yes: Nourished, Cachetic. No: Apparent Distress HEENT: positive: EOMI, KATHE, Normal Voice, Symmetrical. negative: Scleral Icterus (R), Scleral Icterus (L) Neck: positive: Trachea midline, Normal Thyroid. negative: Tender, Lymphadenopathy (R), Lymphadenopathy (L), Tender midline Respiratory/Chest: positive: Lungs Clear, Normal Breath Sounds. negative: Chest Tender, Respiratory Distress, Accessory Muscle Use, Crackles, Rhonchi, Stridor, Wheezing Cardiovascular: positive: Regular Rhythm, Regular Rate. negative: Murmur Gastrointestinal/Abdominal: positive: Normal Bowel Sounds, Flat, Soft. negative : Tender, Organomegaly, Pulsatile Mass, Guarding, Rebound Musculoskeletal: positive: Normal Inspection. negative: CVA Tenderness, Vertebral Tenderness Extremity: positive: Normal Capillary Refill, Normal Range of Motion, Pelvis Stable, Other (no bony deformities or tenderness). negative: Tender, Coldness Integumentary: positive: Normal Color, Dry, Warm, Erythema (L forearm, consistent with chemical dermatitis), Other (ulcer to R medial foot) Neurologic: positive: Alert, Confused, Disoriented CBCD WBC 8.4 K/mm3 (4.0-10.0) 03/20/19 07:47 RBC 3.02 M/mm3 (3.60-5.2) L 03/20/19 07:47 Hgb 9.3 GM/dL (10.7-15.3) L 03/20/19 07:47 Hct 27.4 % (32.4-45.2) L 03/20/19 07:47 MCV 90.7 fl (80-96) 03/20/19 07:47 MCHC 34.0 g/dl (32.0-36.0) 03/20/19 07:47 RDW 15.1 % (11.6-15.6) 03/20/19 07:47 Plt Count 400 K/MM3 (134-434) 03/20/19 07:47 MPV 6.7 fl (7.5-11.1) L 03/20/19 07:47 CMP Sodium 142 mmol/L (136-145) 03/20/19 07:47 Potassium 3.9 mmol/L (3.5-5.1) 03/20/19 07:47 Chloride 104 mmol/L (98-107) 03/20/19 07:47 Carbon Dioxide 34 mmol/L (21-32) H 03/20/19 07:47 Anion Gap 5 MMOL/L (8-16) L 03/20/19 07:47 BUN 7.2 mg/dL (7-18) 03/20/19 07:47 Creatinine 0.5 mg/dL (0.55-1.3) L 03/20/19 07:47 Random Glucose 71 mg/dL (74-106) L 03/20/19 07:47 Calcium 8.2 mg/dL (8.5-10.1) L 03/20/19 07:47 Total Bilirubin 0.3 mg/dL (0.2-1) 03/20/19 07:47 AST 17 U/L (15-37) 03/20/19 07:47 ALT 16 U/L (13-61) 03/20/19 07:47 Alkaline Phosphatase 132 U/L (45-117) H 03/20/19 07:47 Total Protein 5.6 g/dl (6.4-8.2) L 03/20/19 07:47 Albumin 1.6 g/dl (3.4-5.0) L 03/20/19 07:47 PLAN: Maria E Chahal is an 83F with PMH dementia, hypothyroidism, anemia, recent hospitalization for PNA, and known seizure disorder without medication for the last 4 weeks sent from [facility] for 2x seizures. Patient has baseline dementia and is alert but communicates in short phrases but does not meaningfully communicate other than saying that she is cold or hungry when asked how she is feeling.Called [facility] and spoke to hvac service manager Ariadne, who reported that patient arrived 7 days prior of day of admission from [facility] where she was admitted for PND and IV Abx needing PICC, previously living with son eTo (#[phone]). On day of admission had 2 seizures, first at 11:15AM lasting ~60 seconds with shaking and facial twitching, resolved, then second seizures at 11:40AM. Per daughter at bedside during seizures, patient has known hx of seizures on medications, but paperwork does not indicate any seizure medications on medicine list, assumed that patient has not gotten seizure meds in a month since prior to hospitalization. Nursing denied any other symptoms prior, has been tolerating soft diet and performing rehab well. Daughter did not know when prior seizure was. Lamictal restarted at 25 mg and can remain on this dose for now unless recurrent events occur at which point would consider increasing to 50 mg. Seizure free at this time. Remains on Levaquin for urinary tract infection which can be precipitant for seizure, was planned for discharge yesterday but according to the nurse this was delayed due to temp of 100 Patient may be considered for discharge today.
[2019-03-22 08:52] LABS: BASO % 0.2 % (0-2.0); EOS % 0.9 % (0-4.5); HEMATOCRIT 27.4 % (32.4-45.2); HEMOGLOBIN 9.4 GM/dL (10.7-15.3); MCH 30.8 pg (25.7-33.7); MCHC 34.2 g/dl (32.0-36.0); MEAN CELL VOLUME 89.8 fl (80-96); MEAN PLT VOLUME 6.4 fl (7.5-11.1); NEUT % 74.9 % (42.8-82.8); PLATELET COUNT 410 K/MM3 (134-434); RBC 3.05 M/mm3 (3.60-5.2); RDW 14.8 % (11.6-15.6); WHITE BLOOD COUNT 7.1 K/mm3 (4.0-10.0)
[2019-03-22 09:13] LABS: ALBUMIN 1.7 g/dl (3.4-5.0); BILIRUBIN,TOTAL 0.2 mg/dL (0.2-1); CALCIUM 8.3 mg/dL (8.5-10.1); CREATININE 0.5 mg/dL (0.55-1.3); POTASSIUM 3.7 mmol/L (3.5-5.1); TOT PROT 5.8 g/dl (6.4-8.2)
--- NOTE | 2019-03-22 09:43 | PN ---
Progress Note, Physician Chief Complaint: in bed; had low grade temp 100 last afternoon so DC to NH on hold; repeat UA less WBC, UCx Pending; CXR better; WBC NL afebrile today; sacral stage 2 stable , no cough no rashes; to remove PICC and DC to NH on po levaquin - f/u UCx outpt remove PICC line - Current Medication List Current Medications: Active Medications Acetaminophen (Tylenol -) 650 mg PO Q6H PRN PRN Reason: PAIN Albuterol/Ipratropium (Duoneb -) 1 amp NEB RTID [facility] Last Admin: 03/22/19 07:30 Dose: 1 amp Diltiazem HCl (Cardizem -) 30 mg PO Q6HPO [facility] Last Admin: 03/22/19 06:53 Dose: 30 mg Famotidine (Pepcid -) 20 mg PO DAILY [facility] Last Admin: 03/21/19 10:41 Dose: 20 mg Ferrous Gluconate (Fergon -) 324 mg PO DAILY [facility] Last Admin: 03/21/19 10:40 Dose: 324 mg Furosemide (Lasix -) 20 mg PO DAILY [facility] Last Admin: 03/21/19 10:38 Dose: 20 mg Heparin Sodium (Porcine) (Heparin -) 5,000 unit SQ BID [facility] Last Admin: 03/21/19 23:55 Dose: 5,000 unit Lamotrigine (Lamictal -) 25 mg PO DAILY [facility] Last Admin: 03/21/19 10:40 Dose: 25 mg Levofloxacin (Levaquin -) 250 mg PO DAILY [facility] Last Admin: 03/21/19 10:38 Dose: 250 mg Levothyroxine Sodium (Synthroid -) 75 mcg PO ACBK [facility] Last Admin: 03/22/19 06:54 Dose: 75 mcg Multivitamins/Minerals/Vitamin C (Tab-A-Vit -) 1 tab PO DAILY [facility] Last Admin: 03/21/19 10:37 Dose: 1 tab Potassium Phos/Sodium Phos (Phos-Nak Packet -) 1 packet PO DAILY [facility] Last Admin: 03/21/19 10:38 Dose: 1 packet - Objective Vital Signs: Vital Signs Temperature 98.3 F 03/22/19 06:00 Pulse Rate 85 03/22/19 06:00 Respiratory Rate 20 03/22/19 06:00 Blood Pressure 146/79 03/22/19 06:00 O2 Sat by Pulse Oximetry (%) 97 03/21/19 21:00 Constitutional: Yes: No Distress, Calm Eyes: Yes: Conjunctiva Clear HENT: Yes: Atraumatic Neck: Yes: Supple Cardiovascular: Yes: Regular Rate and Rhythm Respiratory: Yes: Diminished Gastrointestinal: Yes: Soft. No: Tenderness Genitourinary: No: Hematuria Musculoskeletal: No: Joint Stiffness, Joint Swelling Extremities: No: Cold, Cool, Cyanosis Edema: No Integumentary: No: Erythema, Rash Wound/Incision: Yes: Clean/Dry (sacral stage 2) Neurological: Yes: Alert Psychiatric: Yes: Alert. No: Agitated Labs: CBC, BMP 03/22/19 08:05 03/22/19 08:05 - ....Imaging Other: Report Reviewed Assessment/Plan Maria E Chahal is an 83F with PMH advanced dementia, hypothyroidism, anemia, recent hospitalization for PNA and pancreatitis, and known seizure disorder admitted for seizures. Found to have pleural effusions and anemia. Severe Protein and caloric deficit malnutrition. neurology f/u no fever no signs of new infection so far UTI PSeudomonas Po levaquin 250 mg/d - [facility] eval outpt for pessary management aspiration PFX, thickened fluids, purree diet; d/w staff DC to [place]
[2019-03-22] MEDS: HEPARIN NA (PORCINE) 5,000 UNITS/ML 1ML VIAL SQ SCH (10:02)
[2019-03-22] MEDS: FERROUS GLUCONATE 324 MG TAB (FP) PO SCH (10:02)
[2019-03-22] MEDS: MULTIVITAMINS (DAILY MVI) TABLET (FP) PO SCH (10:02)
[2019-03-22] MEDS: FUROSEMIDE 20 MG TABLET (FP) PO SCH (10:02)
[2019-03-22] MEDS: NAPH,MB-DB/K PH,MBDB POWDER PACKET PO SCH (10:02)
[2019-03-22] MEDS: FAMOTIDINE 20 MG TABLET PO SCH (10:03)
[2019-03-22] MEDS: lamoTRIgine 25 MG TABLET PO SCH (10:03)
[2019-03-22 11:02] VITALS: BP 113/49; PULSE 95; TEMP 98.8
--- NOTE | 2019-03-22 14:21 | PN ---
Progress Note (short form) - Note Progress Note: Resting in NAD on RA. Afebrile. No acute events overnight. Intake & Output 03/19/19 03/20/19 03/21/19 03/22/19 23:59 23:59 23:59 23:59 Intake Total 250 540 120 100 Output Total 400 Balance 250 540 -280 100 Weight 70 lb 71 lb 69 lb 68 lb 2 oz Last Vital Signs Temp Pulse Resp BP Pulse Ox 98.8 F 95 H 18 113/49 L 96 03/22/19 10:00 03/22/19 10:00 03/22/19 10:00 03/22/19 10:00 03/22/19 10:00 Active Medications Acetaminophen (Tylenol -) 650 mg PO Q6H PRN PRN Reason: PAIN Albuterol/Ipratropium (Duoneb -) 1 amp NEB RTID [facility] Last Admin: 03/22/19 07:30 Dose: 1 amp Diltiazem HCl (Cardizem -) 30 mg PO Q6HPO [facility] Last Admin: 03/22/19 13:05 Dose: Not Given Famotidine (Pepcid -) 20 mg PO DAILY [facility] Last Admin: 03/22/19 10:03 Dose: 20 mg Ferrous Gluconate (Fergon -) 324 mg PO DAILY [facility] Last Admin: 03/22/19 10:02 Dose: 324 mg Furosemide (Lasix -) 20 mg PO DAILY [facility] Last Admin: 03/22/19 10:02 Dose: 20 mg Heparin Sodium (Porcine) (Heparin -) 5,000 unit SQ BID [facility] Last Admin: 03/22/19 10:02 Dose: 5,000 unit Lamotrigine (Lamictal -) 25 mg PO DAILY [facility] Last Admin: 03/22/19 10:03 Dose: 25 mg Levofloxacin (Levaquin -) 250 mg PO DAILY [facility] Last Admin: 03/22/19 10:02 Dose: 250 mg Levothyroxine Sodium (Synthroid -) 75 mcg PO ACBK [facility] Last Admin: 03/22/19 06:54 Dose: 75 mcg Multivitamins/Minerals/Vitamin C (Tab-A-Vit -) 1 tab PO DAILY [facility] Last Admin: 03/22/19 10:02 Dose: 1 tab Potassium Phos/Sodium Phos (Phos-Nak Packet -) 1 packet PO DAILY [facility] Last Admin: 03/22/19 10:02 Dose: 1 packet Gen: NAD at rest Heart: RRR Lung: decreased breath sounds at the bases Abd: soft, nontender Ext: no edema Laboratory Results - last 24 hr 03/21/19 03/22/19 03/22/19 17:45 08:05 08:05 WBC 7.1 RBC 3.05 L Hgb 9.4 L Hct 27.4 L MCV 89.8 MCH 30.8 MCHC 34.2 RDW 14.8 Plt Count 410 MPV 6.4 L Absolute Neuts (auto) 5.3 Neutrophils % 74.9 Lymphocytes % 16.0 D Monocytes % 8.0 Eosinophils % 0.9 D Basophils % 0.2 Nucleated RBC % 0 Sodium 142 Potassium 3.7 Chloride 104 Carbon Dioxide 34 H Anion Gap 4 L BUN 11.0 Creatinine 0.5 L Est GFR (CKD-EPI)AfAm 103.01 Est GFR (CKD-EPI)NonAf 88.88 Random Glucose 87 Calcium 8.3 L Total Bilirubin 0.2 AST 17 ALT 16 Alkaline Phosphatase 127 H Total Protein 5.8 L Albumin 1.7 L Urine Color Yellow Urine Appearance Cloudy Urine pH 7.0 Ur Specific [place] 1.011 Urine Protein Negative Urine Glucose (UA) Negative Urine Ketones Negative Urine Blood Negative Urine Nitrite Negative Urine Bilirubin Negative Urine Urobilinogen 0.2 Ur Leukocyte Esterase 3+ H Urine WBC (Auto) 39 Urine RBC (Auto) 1 Urine Casts (Auto) 9 U Epithel Cells (Auto) >36 Urine Bacteria (Auto) 13.1 Problem List - Problems (1) Pleural effusion Code(s): J90 - PLEURAL EFFUSION, NOT ELSEWHERE CLASSIFIED A/P Bilateral Pleural Effusions Suspect Acute on Chronic Diastolic Heart Failure Recent Pneumonia HTN Hypothyroidism Dementia - aspiration precautions - DC planning Dr Vigil
== END 2019-03-22 14:44 | DRG 100 ==
LOC: JER 12:59 → JERBED 19:38 → J5S 03-16 01:48
PROVIDERS: ADMIT Specialist; ATTEND Specialist
DX: G40.909 Epilepsy, unspecified, not intractable, without status epilepticus (principal); L89.153 Pressure ulcer of sacral region, stage 3; I50.33 Acute on chronic diastolic (congestive) heart failure; J98.11 Atelectasis; J90 Pleural effusion, not elsewhere classified; N39.0 Urinary tract infection, site not specified; E46 Unspecified protein-calorie malnutrition; Z68.1 Body mass index [BMI] 19.9 or less, adult; I11.0 Hypertensive heart disease with heart failure; F03.90 Unspecified dementia, unspecified severity, without behavioral disturbance, psychotic disturbance, mood disturbance, and anxiety; D64.9 Anemia, unspecified; E03.9 Hypothyroidism, unspecified; B96.5 Pseudomonas (aeruginosa) (mallei) (pseudomallei) as the cause of diseases classified elsewhere; L89.152 Pressure ulcer of sacral region, stage 2; I25.10 Atherosclerotic heart disease of native coronary artery without angina pectoris; R62.7 Adult failure to thrive
CPT/HCPCS: 36415; 71045-TC-FY; 71250-TC; 74176-TC; 80048; 80053; 81003; 82607; 82728; 82746; 83540; 83615; 83880; 84155; 84165; 84439; 84443; 85025; 85027; 85044; 85651; 86140; 87086; 87186; 90670; 93005; 93010; 93306-TC; 94640; 99283-25; J1644